=== PATIENT | male | born 1975 | race Caucasian/White ===

== ENCOUNTER 2018-08-17 21:51 | Inpatient (IN) | payer OTHER ==
--- NOTE | 2018-08-17 22:40 | ED ---
General Adult HPI - General Chief complaint: Recheck/Abnormal Lab/Rx Stated complaint: Hypertension Time Seen by Provider: 08/17/18 22:21 Source: patient, family Mode of arrival: ambulatory Limitations: no limitations - History of Present Illness Initial comments: This patient is a 43-year-old man who presents with a constellation of symptoms that came on this evening. The patient states that he was sitting tonight watching television and noted that he was having a little bit of headache. He describes it as being bifrontal, throbbing, mild to moderate intensity. He also was feeling a little dizzy or lightheaded. He states that he decided to check his blood pressure and found that it was above 180. He took an aspirin and he took some magnesium tablets and rested and then when the blood pressure was taken again it was higher so he presented to be evaluated. The patient states it subsequently he has started feeling better. He states in fact the symptoms have resolved and he is feeling pretty well right now. He denies having chest pain, dyspnea, diaphoresis, nausea or vomiting. -: hour(s) Location: head Radiation: non-radiation Quality: dull Consistency: now resolved Improves with: none Worsens with: none Associated Symptoms: fever/chills (Chill), headaches Treatments Prior to Arrival: Aspirin - Related Data Home Medications Medication Instructions Recorded Confirmed Magnesium 200 mg PO DAILY 08/17/18 08/17/18 Previous Rx's Medication Instructions Recorded Aspirin 81 mg PO DAILY chew 08/19/18 Lisinopril [Zestril] 5 mg PO DAILY #90 tab 08/19/18 Metoprolol Tartrate [Lopressor] 25 mg PO BID #180 tab 08/19/18 Simvastatin 80 mg PO DAILY #90 tablet 08/19/18 Allergies Allergy/AdvReac Type Severity Reaction Status Date / Time No Known Allergies Allergy Verified 08/17/18 22:41 Review of Systems ROS Statement: Those systems with pertinent positive or pertinent negative responses have been documented in the HPI. ROS Other: All systems not noted in ROS Statement are negative. Constitutional: Reports: chills. Denies: fever, weakness Eyes: Denies: eye pain, vision change ENT: Denies: ear pain Respiratory: Denies: cough, dyspnea Cardiovascular: Denies: chest pain, palpitations, orthopnea, syncope Gastrointestinal: Denies: abdominal pain, nausea, vomiting Musculoskeletal: Denies: back pain Neurological: Reports: headache. Denies: weakness, numbness, paresthesias, confusion Past Medical History Past Medical History: Hypertension History of Any Multi-Drug Resistant Organisms: None Reported Past Surgical History: Cholecystectomy Past Psychological History: No Psychological Hx Reported Smoking Status: Never smoker Past Alcohol Use History: None Reported Past Drug Use History: None Reported - Past Family History Father Family Medical History: CVA/TIA Additional Family Medical History / Comment(s): 2 brothers healthy one sister healthy 2 daughters healthy 2 sons healthy Mother Family Medical History: CVA/TIA General Exam Limitations: no limitations General appearance: alert, in no apparent distress Head exam: Present: atraumatic, normocephalic Eye exam: Present: normal appearance. Absent: scleral icterus, conjunctival injection ENT exam: Present: normal oropharynx Respiratory exam: Present: normal lung sounds bilaterally. Absent: respiratory distress, wheezes, rales, rhonchi, stridor Cardiovascular Exam: Present: regular rate, normal rhythm, normal heart sounds. Absent: systolic murmur, diastolic murmur, rubs, gallop GI/Abdominal exam: Present: soft. Absent: distended, tenderness, guarding, rebound Extremities exam: Present: normal inspection, normal capillary refill. Absent: pedal edema, calf tenderness Back exam: Present: normal inspection. Absent: CVA tenderness (R), CVA tenderness (L) Neurological exam: Present: alert, oriented X3, CN II-XII intact, normal gait. Absent: motor sensory deficit Skin exam: Present: warm, dry, intact, normal color. 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 ] Respiratory 20 15 18 Rate Blood Pressure 162/87 150/86 141/84 Blood Pressure [Right Arm Sitting] O2 Sat by Pulse 99 98 98 Oximetry 08/18/18 08/18/18 08/18/18 00:00 00:30 01:00 Temperature Pulse Rate 67 70 73 Pulse Rate [ Right Sitting Head Of [employer]ch[employer] Bu[employer] ] Respiratory 12 18 10 L Rate Blood Pressure 141/84 140/83 144/93 Blood Pressure [Right Arm Sitting] O2 Sat by Pulse 99 98 98 Oximetry 11/23/18 01:20 Temperature 98.3 F Pulse Rate Pulse Rate [ 64 Right Sitting Head Of Merchandise Buying ] Respiratory 16 Rate Blood Pressure Blood Pressure 144/85 [Right Arm Sitting] O2 Sat by Pulse 98 Oximetry EKG Findings - EKG Results: EKG: interpreted by MARIBEL SHERIDAN, sinus rhythm (Rate 69 bpm), normal axis (Normal) , normal QRS (Normal), normal ST/T (Normal), no acute changes - DE, Pacemaker, Normal: Normal tracing: normal tracing Medical Decision Making - Lab Data Result diagrams: 08/17/18 23:05 08/19/18 06:06 Lab Results 08/17/18 08/17/18 08/17/18 Range/Units 23:05 23:05 23:05 WBC 7.4 (3.8-10.6) k/uL RBC 5.46 (4.30-5.90) m/uL Hgb 16.4 (13.0-17.5) gm/dL Hct 49.8 (39.0-53.0) % MCV 91.1 (80.0-100.0) fL MCH 30.0 (25.0-35.0) pg MCHC 32.9 (31.0-37.0) g/dL RDW 13.7 (11.5-15.5) % Plt Count 227 (150-450) k/uL Neutrophils % 55 % Lymphocytes % 32 % Monocytes % 8 % Eosinophils % 1 % Basophils % 1 % Neutrophils # 4.0 (1.3-7.7) k/uL Lymphocytes # 2.3 (1.0-4.8) k/uL Monocytes # 0.6 (0-1.0) k/uL Eosinophils # 0.1 (0-0.7) k/uL Basophils # 0.0 (0-0.2) k/uL Sodium 139 (137-145) mmol/L Potassium 4.1 (3.5-5.1) mmol/L Chloride 105 (98-107) mmol/L Carbon Dioxide 25 (22-30) mmol/L Anion Gap 9 mmol/L BUN 14 (9-20) mg/dL Creatinine 1.19 (0.66-1.25) mg/dL Est GFR (CKD-EPI)AfAm 86 (>60 ml/min/1.73 sqM) Est GFR (CKD-EPI)NonAf 75 (>60 ml/min/1.73 sqM) Glucose 121 H (74-99) mg/dL Estimated Ave Glu mg/dL Hemoglobin A1c (4.0-6.0) % Calcium 9.6 (8.4-10.2) mg/dL Magnesium 1.9 (1.6-2.3) mg/dL Total Bilirubin 0.4 (0.2-1.3) mg/dL AST 30 (17-59) U/L ALT 43 (21-72) U/L Alkaline Phosphatase 40 (38-126) U/L Total Creatine Kinase (55-170) U/L CK-MB (CK-2) (0.0-2.4) ng/mL CK-MB (CK-2) Rel Index Troponin I 0.359 H* (0.000-0.034) ng/mL Total Protein 7.2 (6.3-8.2) g/dL Albumin 4.2 (3.5-5.0) g/dL 08/18/18 08/18/18 08/18/18 Range/Units 05:41 11:19 11:19 WBC (3.8-10.6) k/uL RBC (4.30-5.90) m/uL Hgb (13.0-17.5) gm/dL Hct (39.0-53.0) % MCV (80.0-100.0) fL MCH (25.0-35.0) pg MCHC (31.0-37.0) g/dL RDW (11.5-15.5) % Plt Count (150-450) k/uL Neutrophils % % Lymphocytes % % Monocytes % % Eosinophils % % Basophils % % Neutrophils # (1.3-7.7) k/uL Lymphocytes # (1.0-4.8) k/uL Monocytes # (0-1.0) k/uL Eosinophils # (0-0.7) k/uL Basophils # (0-0.2) k/uL Sodium (137-145) mmol/L Potassium (3.5-5.1) mmol/L Chloride (98-107) mmol/L Carbon Dioxide (22-30) mmol/L Anion Gap mmol/L BUN (9-20) mg/dL Creatinine (0.66-1.25) mg/dL Est GFR (CKD-EPI)AfAm (>60 ml/min/1.73 sqM) Est GFR (CKD-EPI)NonAf (>60 ml/min/1.73 sqM) Glucose (74-99) mg/dL Estimated Ave Glu mg/dL 108 Hemoglobin A1c 5.4 (4.0-6.0) % Calcium (8.4-10.2) mg/dL Magnesium (1.6-2.3) mg/dL Total Bilirubin (0.2-1.3) mg/dL AST (17-59) U/L ALT (21-72) U/L Alkaline Phosphatase (38-126) U/L Total Creatine Kinase 289 H 283 H (55-170) U/L CK-MB (CK-2) 1.2 1.2 (0.0-2.4) ng/mL CK-MB (CK-2) Rel Index 0.4 0.4 Troponin I 0.373 H* 0.358 H* (0.000-0.034) ng/mL Total Protein (6.3-8.2) g/dL Albumin (3.5-5.0) g/dL Disposition Clinical Impression: Hypertension, Elevated troponin I measurement Disposition: ADMITTED IP TO THIS HOSP Condition: Good Is patient prescribed a controlled substance at d/c from ED?: No
[2018-08-17 23:16] LABS: Basophils % (A) 1 %; Eosinophils # (A) 0.1 k/uL (0-0.7); Eosinophils % (A) 1 %; HCT 49.8 % (39.0-53.0); HGB 16.4 gm/dL (13.0-17.5); Lymphocytes # (A) 2.3 k/uL (1.0-4.8); Lymphocytes % (A) 32 %; MCHC 32.9 g/dL (31.0-37.0); MCV 91.1 fL (80.0-100.0); Mean Platelet Volume 6.8; Monocytes # (A) 0.6 k/uL (0-1.0); Monocytes % (A) 8 %; Neutrophils % (A) 55 %; Platelet Count 227 k/uL (150-450); RBC 5.46 m/uL (4.30-5.90); RDW 13.7 % (11.5-15.5); WBC 7.4 k/uL (3.8-10.6)
[2018-08-17 23:25] LABS: Albumin 4.2 g/dL (3.5-5.0); Calcium 9.6 mg/dL (8.4-10.2); Magnesium 1.9 mg/dL (1.6-2.3); Potassium 4.1 mmol/L (3.5-5.1); Total Bilirubin 0.4 mg/dL (0.2-1.3); Total Protein 7.2 g/dL (6.3-8.2)
--- NOTE | 2018-08-18 00:03 | XR ---
EXAMINATION TYPE: XR chest 1V portable DATE OF EXAM: 08/17/2018 COMPARISON: 09/02/2009 HISTORY: Hypertension TECHNIQUE: Single frontal view of the chest is obtained. FINDINGS: There is no heart failure nor confluent pneumonic infiltrate. Costophrenic angles are cesilia r. There are chest leads. IMPRESSION: No active cardiopulmonary disease. No change.
[2018-08-18] MEDS ORDERED: ASPIRIN 81 MG PO STA (00:23)
[2018-08-18] MEDS ORDERED: ENOXAPARIN 100 MG/ML SYRINGE SQ STA (00:24)
[2018-08-18] MEDS ORDERED: NITROGLYCERIN SL TABS 0.4 MG TAB SUBLINGUAL PRN ×2 (00:32→07:53)
[2018-08-18 06:33] LABS: Creatine Kinase MB 1.2 ng/mL (0.0-2.4)
[2018-08-18 06:37] LABS: Troponin I 0.373 ng/mL (0.000-0.034)
[2018-08-18] MEDS ORDERED: ASPIRIN 325 MG TAB PO STA (07:53)
[2018-08-18] MEDS ORDERED: SODIUM CHLORIDE 0.9% 1,000 ML in EMPTY BAG 1 BAG IV ONE (07:53)
[2018-08-18] MEDS ORDERED: ALPRAZolam 0.25 MG TAB PO PRN (07:53)
[2018-08-18] MEDS ORDERED: ALPRAZolam 0.5 MG TAB PO PRN (07:53)
[2018-08-18] MEDS ORDERED: ATORVASTATIN 80 MG TAB PO STA (07:53)
[2018-08-18] MEDS: METOPROLOL TARTRATE 25 MG TAB PO SCH ×2 (08:49→20:21)
[2018-08-18] MEDS ORDERED: IV FLUID CONTINUATION 850 ML IV ONE (09:45)
[2018-08-18] MEDS ORDERED: fentaNYL (PF) 50 MCG/ML 2 ML AMP ONE (09:56)
[2018-08-18] MEDS ORDERED: VERAPAMIL 2.5 MG/ML 2 ML AMP ONE (09:56)
[2018-08-18] MEDS ORDERED: HEPARIN SODIUM 1,000 UN/ML (10ML VL) ONE (09:56)
[2018-08-18] MEDS ORDERED: fentaNYL (PF) 50 MCG/ML 2 ML AMP IV ONE (10:30)
[2018-08-18] MEDS ORDERED: MIDAZOLAM 2 MG/2 ML VIAL ONE (10:31)
[2018-08-18] MEDS ORDERED: LIDOCAINE 2% SYG (PF) 100 MG/5 ML MISCELLANE ONE (10:32)
[2018-08-18] MEDS ORDERED: MIDAZOLAM 2 MG/2 ML VIAL IV ONE (10:35)
[2018-08-18] MEDS ORDERED: VERAPAMIL SYRINGE (5 MG/10 ML) INTRAARTER ONE (10:39)
[2018-08-18] MEDS ORDERED: HEPARIN SODIUM 1,000 UN/ML (10ML VL) IV ONE (10:48)
[2018-08-18] MEDS ORDERED: IOPAMIDOL-370 125ML BTL INJ ONE (10:52)
[2018-08-18] MEDS ORDERED: RX INFO: IV CONTRAST WAS GIVEN 1 EACH MISC MISCELLANE PRN (11:02)
[2018-08-18] MEDS: LISINOPRIL 5 MG TAB PO SCH (11:31)
[2018-08-18] MEDS ORDERED: ACETAMINOPHEN TAB 325 MG TAB PO PRN (12:47)
[2018-08-18 12:52] LABS: Creatine Kinase MB 1.2 ng/mL (0.0-2.4)
--- NOTE | 2018-08-18 13:04 | CONS ---
CONSULTATION Mr. Guardado is a 43-year-old male with no prior documented history of cardiac disease who for the last week has been complaining of headache. He checked his blood pressure and has noted it to be elevated. He has noted some discomfort in the chest that was very brief and not activity related. Recently he has been more active physically, has joined a gym and has been walking on the treadmill without any chest pain. He has no associated dyspnea, dizziness or palpitation. No syncope. No PND, orthopnea, or peripheral edema. He has no prior cardiac history or recent cardiac workup. His coronary risk factors are negative for diabetes or documented hyperlipidemia. There is no family history of premature coronary disease, his father had a history of stroke. He has stopped smoking many years ago. He had no prior documented history of hypertension or treated hypertension. MEDICATION: At the time of presentation were aspirin on a p.r.n. basis. REVIEW OF SYSTEMS: RESPIRATORY system: He has no recent history of documented asthma, emphysema or bronchitis. GI system: No recent GI bleed. No peptic ulcer disease. system: No dysuria or hematuria. Nervous system: No stroke or seizure. PHYSICAL EXAMINATION: He is a 43-year-old male, alert, oriented, in no apparent distress. Blood pressure on presentation was 162/80. There on is running in the 130s with a heart in the 60s. HEAD: Normocephalic. Eyes: Sclerae anicteric. Neck: Good carotid upstroke. No bruit. No jugular venous distention. LUNGS: Clear to auscultation. HEART: Regular rate and rhythm S1, S2. No S3. No S4. No murmur or rub. ABDOMEN: Soft, nontender. Positive bowel sounds. No megaly. EXTREMITIES: No edema. Intact distal pulses. LAB DATA: Lab data revealed troponin 0.359 and 0.373. His blood sugar is 121, BUN and creatinine 14 and 1.19, potassium 4.1, hemoglobin of 16.4. His EKG shows a sinus mechanism, normal axis and intervals with minor nonspecific ST-T wave changes. The chest x-ray shows no acute infiltrate. IMPRESSION: 1. Chest discomfort that has atypical features for ischemic heart disease with mild elevation of troponin of unclear etiology. The troponin elevation could be related to the elevated blood pressure, although the possibility of ischemic heart disease cannot be totally excluded. 2. Hypertension not documented in the past. RECOMMENDATIONS: I have recommend to obtain echocardiogram with Doppler. I will also recommend proceed with a coronary angiography to assess his status and guide his treatment. The rationale behind the procedure as well as risks and complications were discussed with the patient who is in full understanding and agreement. Depending on the results of testing, further recommendations will be made. Thank you for this consult. We will follow with you. ROSALEE / GRANTN: [id number] /
[2018-08-18 13:21] LABS: Troponin I 0.358 ng/mL (0.000-0.034)
--- NOTE | 2018-08-18 13:52 | CC ---
CARDIAC CATHETERIZATION REPORT Mr. Guardado is a 43-year-old male with no prior documented history of coronary artery disease who recently has been complaining of headache and was found to have his blood pressure is quite elevated. He has not followed his blood pressure prior to that and he was complaining of some episode of chest discomfort on and off, not exertion in pattern. Because of his symptoms, he was admitted and was found to have mild elevation of the troponin. In view of that, recommendation was made regarding cardiac catheterization. The procedure as well as the risks and the complications were discussed with the patient who is in full understanding and agreement. PROCEDURE: Patient was brought to the landscape laborer in a fasting semi-sedated state after receiving fentanyl and Benadryl and achieving moderate conscious sedated state. Using Xylocaine anesthesia in the Seldinger technique, a 6-Haitian sheath was introduced in the right radial artery. Selective right and left coronary angiography performed using 5-Haitian 3.5 bend right and left Merle catheter. Multiple views of the coronary artery including hemiaxial views were obtained. Following that 5-Haitian tight pigtail catheter was introduced in the left ventricle and a 30-degree JAMES view of the left ventricle was obtained. Following that, catheter and sheaths were removed. Hemostasis was obtained with deployment of a TR band. There was no immediate complication. Patient is returned to his room in stable condition. Of note, the patient received 5000 units of intravenous heparin as well as intraarterial verapamil. He had no chest discomfort or complication at the end procedure. FINDINGS: LEFT MAIN: This is a short size vessel bifurcating in the left circumflex and left anterior descending artery. Left main coronary artery has no evidence of high-grade stenosis. LEFT ANTERIOR DESCENDING ARTERY: This is a large-sized vessel reaching toward the apex, giving rise to a large proximal diagonal branch. The left anterior descending artery as well as branches have no evidence of obstructive coronary artery disease. LEFT CIRCUMFLEX: This is a large nondominant vessel giving rise to a large obtuse marginal branch that has no evidence of high-grade stenosis. RIGHT CORONARY ARTERY: This is a large dominant vessel bifurcating distally PDA and posterolateral segment and branches. The right coronary artery as well as branches have no evidence of obstructive coronary artery disease. LEFT VENTRICULOGRAM: Left ventriculogram is performed in 30-degree JAMES view and revealed mild global hypokinesis. The estimated ejection fraction 40% to 45%. There was no significant mitral regurgitation. HEMODYNAMICS: There was no gradient across the aortic valve. The left ventricular end- diastolic pressure was 12 mmHg. CONCLUSION: 1. Normal coronary arteries. 2. Moderately impaired left ventricular systolic function. RECOMMENDATION: At this time, I will maximize his medical therapy. Will obtain echocardiogram to further evaluate the left ventricular systolic function. Depending on that, further recommendation will be made. Those findings and recommendation were discussed with the patient and his family and they are in full understanding and agreement. Duration of procedure is 25 minutes. MMMACKENZIEL / IJN: [id number] /
[2018-08-18] MEDS ORDERED: HYDROcodone/APAP 5-325MG 1 EACH TAB PO STA (16:13)
--- NOTE | 2018-08-18 17:15 | ECHOF ---
Referral Reason:htn MEASUREMENTS -------- HEIGHT: 172.7 cm WEIGHT: 102.1 kg BP: 123/70 RVIDd: 2.8 cm (< 3.3) IVSd: 1.0 cm (0.6 - 1.1) LVIDd: 6.1 cm (3.9 - 5.3) LVPWd: 1.1 cm (0.6 - 1.1) IVSs: 1.6 cm LVIDs: 3.8 cm LVPWs: 1.3 cm LA Diam: 3.9 cm (2.7 - 3.8) LAESV Index (A-L): 24.14 ml/m Ao Diam: 3.2 cm (2.0 - 3.7) AV Cusp: 2.1 cm (1.5 - 2.6) MV EXCURSION: 13.189 mm (> 18.000) MV EF SLOPE: 99 mm/s (70 - 150) EPSS: 1.0 cm MV E Paul: 1.12 m/s MV DecT: 167 ms MV A Paul: 0.60 m/s MV E/A Ratio: 1.86 AV maxP.45 mmHg AV meanP.10 mmHg RAP: 5.00 mmHg RVSP: 20.86 mmHg FINDINGS -------- Sinus rhythm. This was a technically adequate study. The left ventricle is mildly dilated. There is borderline concentric left ventricular hypertrophy. There is moderate global hypokinesis of LV . Overall left ventricular systolic function is mild-m oderately impaired with, an EF between 40 - 45 %. The right ventricle is normal in size. Normal LA size by volume 22+/-6 ml/m2. The right atrium is normal in size. The aortic valve is trileaflet and appears structurally normal. Peak/mean gradient across the Aorti c Valve is 15.45mmHg / 8.10mmHg. Mild mitral regurgitation is present. Mild tricuspid regurgitation present. Right ventricular systolic pressure is normal at < 35 mmHg. There is no pulmonic regurgitation present. The aortic root size is normal. Normal inferior vena cava with normal inspiratory collapse consistent with estimated right atrial pre ssure of 5 mmHg. There is no pericardial effusion. CONCLUSIONS -------- 1. Sinus rhythm. 2. This was a technically adequate study. 3. The left ventricle is mildly dilated. 4. There is borderline concentric left ventricular hypertrophy. 5. There is moderate global hypokinesis of LV . 6. Overall left ventricular systolic function is mild-moderately impaired with, an EF between 40 - 45 %. 7. Normal LA size by volume 22+/-6 ml/m2. 8. The aortic valve is trileaflet and appears structurally normal. 9. Peak/mean gradient across the Aortic Valve is 15.45mmHg / 8.10mmHg. 10. Mild mitral regurgitation is present. 11. Mild tricuspid regurgitation present. 12. Right ventricular systolic pressure is normal at < 35 mmHg. 13. There is no pulmonic regurgitation present. 14. The aortic root size is normal. 15. Normal inferior vena cava with normal inspiratory collapse consistent with estimated right atrial pressure of 5 mmHg. 16. There is no pericardial effusion. EDGE DYER: Milka Villalobos RDCS
--- NOTE | 2018-08-18 19:30 | P.HPIM ---
History of Present Illness H&P Date: 08/18/18 Chief Complaint: Chest pain headache elevated blood pressure This is a 43-year-old gentleman patient of Dr. Frgaa. He has underlying history of hyperlipidemia, not on any statins at home, no known history of hypertension or CAD or diabetes mellitus in the past, comes into the emergency room secondary to headache.. Blood pressure at home was 195 systolic, also related to very mild chest pressure, no dyspnea on exertion prior to this admission, no history of diabetes mellitus or CVA in the past, no history of pulmonary emboli. Patient denies any nausea no vomiting, patient has headache located in the posterior neck, no vision changes except for blurred vision which is present in the past, nothing new, no diplopia, patient does not have any motor deficits in speech no motor deficits or sensory deficits to the deficits in the legs. Patient was subsequently seen in emergency room, noted to have an elevated troponin, EKG shows normal sinus rhythm with no ST-T wave changes, patient underwent an emergent cardiac catheterization secondary to elevated troponin and symptoms suggestive of hypertensive urgency and non-STEMI, patient was seen by myself after cardiac catheterization was performed. Review of Systems Constitutional: Reports as per HPI, Denies anorexia, Denies chills, Denies chronic headaches, Denies chronic pain, Denies daytime sleepiness, Denies fatigue, Denies fever, Denies lethargy, Denies malaise, Denies night sweats, Denies poor appetite, Denies sweats, Denies weakness, Denies weight gain, Denies weight loss Ears, nose, mouth and throat: Reports as per HPI, Denies ant. neck pain, Denies bleeding gums, Denies dental pain, Denies dysphagia, Denies epistaxis, Denies headache, Denies hoarseness, Denies mouth pain, Denies nasal congestion, Denies nasal discharge, Denies neck fullness/pressure, Denies neck lump, Denies nose pain, Denies odynophagia, Denies post-nasal drip, Denies sinus pain, Denies sinus pressure, Denies swelling in mouth, Denies swelling in throat, Denies sore throat, Denies vertigo, Denies voice changes Cardiovascular: Reports as per HPI, Reports chest pain, Denies claudication, Denies decreased exercise tolerance, Denies dyspnea on exertion, Denies edema, Denies high blood pressure, Denies irregular heart beat, Denies leg edema, Denies lightheadedness, Denies orthopnea, Denies palpitations, Denies paroxysmal nocturnal dyspnea, Denies phlebitis, Denies rapid heart beat, Denies shortness of breath, Denies syncope Respiratory: Reports as per HPI, Denies congestion, Denies cough, Denies cough with sputum, Denies dyspnea, Denies excessive sputum, Denies hemoptysis, Denies home oxygen, Denies pain, Denies pain on inspiration, Denies pleurisy, Denies respiratory infections, Denies sleep apnea, Denies snoring, Denies wheezing Gastrointestinal: Reports as per HPI, Denies abdominal pain, Denies belching, Denies bloating, Denies BRBPR, Denies change in bowel habits, Denies coffee ground emesis, Denies constipation, Denies diarrhea, Denies dyspepsia, Denies early satiety, Denies excessive gas, Denies heartburn, Denies hematemesis, Denies hematochezia, Denies indigestion, Denies jaundice, Denies lactose intolerance, Denies loss of appetite, Denies melena, Denies nausea, Denies vomiting Genitourinary: Reports as per HPI Musculoskeletal: Reports as per HPI, Reports neck pain, Denies arm numbness/ tingling, Denies atrophy, Denies fractures, Denies frequent falls, Denies gait dysfunction, Denies hot joints, Denies leg numbness/tingling, Denies limitation of motion, Denies loss of height, Denies low back pain, Denies morning stiffness , Denies muscle cramps, Denies muscle weakness, Denies myalgias, Denies neck stiffness, Denies prior amputations, Denies redness of joints, Denies shooting arm pain, Denies shooting leg pain Integumentary: Reports as per HPI Neurological: Reports as per HPI, Denies aphasia, Denies ataxia, Denies balance difficulties, Denies burning pain, Denies change in mentation, Denies change in smell/taste, Denies change in speech, Denies confusion, Denies convulsions, Denies double vision, Denies gait dysfunction, Denies head injury, Denies headaches, Denies hearing difficulties, Denies lack of coordination, Denies loss of vision, Denies memory loss, Denies migraines, Denies motor disturbance, Denies numbness, Denies paralysis, Denies paresthesias, Denies seizures, Denies sensory deficit, Denies spasticity, Denies syncope, Denies tic, Denies tingling , Denies transient paralysis, Denies tremors, Denies vertigo, Denies weakness, Denies visual changes Psychiatric: Reports as per HPI Endocrine: Reports as per HPI Hematologic/Lymphatic: Reports as per HPI Allergic/Immunologic: Reports as per HPI Past Medical History Past Medical History: Hypertension History of Any Multi-Drug Resistant Organisms: None Reported Past Surgical History: Cholecystectomy, Tonsillectomy Past Anesthesia/Blood Transfusion Reactions: No Reported Reaction Past Psychological History: No Psychological Hx Reported Smoking Status: Never smoker Past Alcohol Use History: None Reported Past Drug Use History: None Reported - Past Family History Father Family Medical History: CVA/TIA Additional Family Medical History / Comment(s): 2 brothers healthy one sister healthy 2 daughters healthy 2 sons healthy Mother Family Medical History: CVA/TIA Medications and Allergies Home Medications Medication Instructions Recorded Confirmed Type Aspirin EC [Ecotrin] 325 mg PO DAILY PRN 08/17/18 08/17/18 History Magnesium 200 mg PO DAILY 08/17/18 08/17/18 History Allergies Allergy/AdvReac Type Severity Reaction Status Date / Time No Known Allergies Allergy Verified 08/17/18 22:41 Physical Exam Vitals: Vital Signs Temp Pulse Pulse Pulse Resp BP BP 08/18/18 14:47 65 18 94/48 08/18/18 13:47 75 18 124/69 08/18/18 12:47 74 18 134/79 08/18/18 12:17 76 18 130/83 08/18/18 11:47 70 18 113/86 08/18/18 11:32 70 18 134/86 08/18/18 11:17 67 18 105/64 08/18/18 08:51 98 F 66 18 08/18/18 07:46 98 F 66 18 08/18/18 04:00 98.1 F 68 16 08/18/18 03:46 08/18/18 01:30 98.3 F 64 18 08/18/18 01:20 98.3 F 64 16 08/18/18 01:00 73 10 L 144/93 08/18/18 00:30 70 18 140/83 08/18/18 00:00 67 12 141/84 08/17/18 23:30 68 18 141/84 08/17/18 23:00 70 15 150/86 08/17/18 22:12 98.7 F 70 20 162/87 BP BP BP Pulse Ox 08/18/18 14:47 95 08/18/18 13:47 95 08/18/18 12:47 95 08/18/18 12:17 98 08/18/18 11:47 96 08/18/18 11:32 95 08/18/18 11:17 98 08/18/18 08:51 123/70 95 08/18/18 07:46 123/70 95 08/18/18 04:00 109/58 96 08/18/18 03:46 137/82 157/88 144/85 08/18/18 01:30 144/85 98 08/18/18 01:20 144/85 98 08/18/18 01:00 98 08/18/18 00:30 98 08/18/18 00:00 99 08/17/18 23:30 98 08/17/18 23:00 98 08/17/18 22:12 99 Intake and Output 08/18/18 08/18/18 08/18/18 06:59 14:59 22:59 Intake Total 270 240 Balance 270 240 Intake: IV 150 Oral 120 240 Other: Voiding Method Toilet # Voids 1 1 # Bowel Movements 1 - Constitutional General appearance: cooperative, no acute distress - EENT Eyes: anicteric sclerae, EOMI, PERRLA, dentition normal, normal appearance ENT: hard of hearing, NA/AT, normal oropharynx - Neck Neck: no lymphadenopathy, normal ROM, no other, no rigidity, no stridor, no thyromegaly - Respiratory Respiratory: bilateral: CTA, negative: diminished, dullness, rales, rhonchi - Cardiovascular Rhythm: regular Heart sounds: normal: S1, S2 Abnormal Heart Sounds: no systolic murmur, no diastolic murmur, no rub, no S3 Gallop, no S4 Gallop, no click, no other - Gastrointestinal General gastrointestinal: no absent bowel sounds, no decreased bowel sounds, no distended, no hepatomegaly, no hyperactive bowel sounds, normal bowel sounds, no organomegaly, no rigid, no scaphoid, soft, no splenomegaly, no tenderness, no umbilical hernia, no ventral hernia - Integumentary Integumentary: decreased turgor, normal - Neurologic Neurologic: CNII-XII intact - Musculoskeletal Musculoskeletal: gait normal, strength equal bilaterally - Psychiatric Psychiatric: A&O x's 3, appropriate affect, intact judgment & insight Results CBC & Chem 7: 08/17/18 23:05 08/17/18 23:05 Labs: Abnormal Lab Results - Last 24 Hours (Table) 08/17/18 08/17/18 08/18/18 Range/Units 23:05 23:05 05:41 Glucose 121 H (74-99) mg/dL Total Creatine Kinase 289 H (55-170) U/L Troponin I 0.359 H* 0.373 H* (0.000-0.034) ng/mL 08/18/18 Range/Units 11:19 Glucose (74-99) mg/dL Total Creatine Kinase 283 H (55-170) U/L Troponin I 0.358 H* (0.000-0.034) ng/mL Thrombosis Risk Factor Assmnt - DVT/VTE Prophylaxis DVT/VTE Prophylaxis: Low risk, early ambulation encouraged - Choose All That Apply Each Factor Represents 1 point: Age 41-60 years Thrombosis Risk Factor Assessment Total Risk Factor Score: 1 Thrombosis Risk Factor Assessment Level: Low Risk Assessment and Plan Plan: 1. Non-STEMI with elevated troponins ruled in [place], most likely secondary to plaque rupture, no occlusive coronary disease noted, patient underwent cardiac catheterization performed August 18, [address] Hendrickson, noted to have normal coronaries however it's moderately impaired left ventricle systolic pressure with EF of 30-40-45%, mild global hypokinesia echocardiogram to be done, patient was started on antihypertensive aspirin and beta chucho 25 mg metoprolol at twice a day. 2. Hypertensive emergency without known history of hypertension the past, continue to monitor blood pressures, patient might need to be investigated for pheochromocytoma, serum metanephrines will be ordered Fasting lipid panel to be done 3. BPH without lower tract symptomatology 4. BMI of 34, hemoglobin A1c to be obtained, 5. CK D stage II, to be avoided, continue IV fluids postcontrast studies from cardiac catheter 6. Headache possibly related to hypertensive emergency, however this needs to be investigated as an outpatient to rule out other neurologic abnormalities.
[2018-08-18 19:41] LABS: Hemoglobin A1C 5.4 % (4.0-6.0)
[2018-08-18 23:37] VITALS: TEMP 98.1
[2018-08-19 07:16] LABS: Anion Gap 6 mmol/L; Blood Urea Nitrogen 11 mg/dL (9-20); Calcium 9.2 mg/dL (8.4-10.2); Carbon Dioxide 26 mmol/L (22-30); Chloride 106 mmol/L (98-107); Cholesterol 239 mg/dL (<200); Glucose 98 mg/dL (74-99); Sodium 138 mmol/L (137-145); Triglycerides 122 mg/dL (<150)
[2018-08-19 07:17] LABS: HDL Cholesterol 41 mg/dL (40-60); LDL Cholesterol,Calculated 174 mg/dL (0-99)
[2018-08-19 08:27] LABS: Potassium 4.8 mmol/L (3.5-5.1)
[2018-08-19] MEDS: METOPROLOL TARTRATE 25 MG TAB PO SCH (08:49)
[2018-08-19 08:53] VITALS: BP 105/58; PULSE 60; RESP 18
[2018-08-19] MEDS ORDERED: ASPIRIN 325 MG TAB PO SCH (09:00)
[2018-08-19] MEDS ORDERED: ASPIRIN 81 MG PO SCH (09:00)
[2018-08-19] MEDS ORDERED: ATORVASTATIN 80 MG TAB PO SCH (09:45)
--- NOTE | 2018-08-19 09:59 | PN ---
PROGRESS NOTE Mr. Guardado is a 43 year-old male who presented with symptoms of chest discomfort as well as hypertension. He had mild elevation of troponin of unknown etiology, underwent cardiac catheterization, has no evidence of high-grade stenosis, but there was evidence of cardiomyopathy. He is doing well this morning, ambulating without difficulty. Denying any symptoms of chest pain. Denies any dizziness or palpitation. Denies any nausea. He continues to be on aspirin 81 mg daily, Zestril 5 mg daily, metoprolol 25 mg twice a day. PHYSICAL EXAMINATION: Blood pressure 105/58 with a heart rate in the 60s. LUNGS: Clear. HEART: Regular rate and rhythm S1, S2. No S3. No rub. ABDOMEN: Soft,nontender. EXTREMITIES: No edema. Right radial pulse is intact. LAB DATA: BUN and creatinine 11 and 0.99. Cholesterol 239, LDL of 174. IMPRESSION: 1. Nonischemic cardiomyopathy. 2. Hypertension under better control. 3. Hyperlipidemia. RECOMMENDATIONS: I will add to his regimen statin. Patient should be able to be discharged home today and followed as an outpatient. MMODL / IJN: [id number] /
[2018-08-19] MEDS: LISINOPRIL 5 MG TAB PO SCH (11:00)
--- NOTE | 2018-08-19 18:01 | P.DS ---
Providers Date of admission: 08/18/18 13:33 Attending physician: Britney Evans Consults: 08/18/18 00:32 Consult Physician Routine Consulting Provider: Rosita Hendrickson Consult Reason/Comments: chest pain Do you want consulting provider notified?: Yes Primary care physician: Emory Fraga [place] [facility] Course: This is a 43-year-old gentleman patient of Dr. Fraga. He has underlying history of hyperlipidemia, not on any statins at home, no known history of hypertension or CAD or diabetes mellitus in the past, comes into the emergency room secondary to headache.. Blood pressure at home was 195 systolic, also related to very mild chest pressure, no dyspnea on exertion prior to this admission, no history of diabetes mellitus or CVA in the past, no history of pulmonary emboli. Patient denies any nausea no vomiting, patient has headache located in the posterior neck, no vision changes except for blurred vision which is present in the past, nothing new, no diplopia, patient does not have any motor deficits in speech no motor deficits or sensory deficits to the deficits in the legs. Patient was subsequently seen in emergency room, noted to have an elevated troponin, EKG shows normal sinus rhythm with no ST-T wave changes, patient underwent an emergent cardiac catheterization secondary to elevated troponin and symptoms suggestive of hypertensive urgency and non-STEMI, patient was seen by myself after cardiac catheterization was performed. Patient had a cardiac catheterization with findings of normal coronary arteries and moderate impaired left ventricular systolic function. Patient is resting comfortably at this time without any complaints. Discharge Diagnosis: 1. Non-STEMI with elevated troponins ruled in [place], most likely secondary to plaque rupture, no occlusive coronary disease 2. Hypertensive emergency without known history of hypertension the past. 3. BPH without lower tract symptomatology 4. BMI of 34, , 5. CK D stage II, 6. Headache possibly related to hypertensive emergency, Disposition: Home with self care CC; Dr. Fraga Impression and plan of care have been directed as dictated by the signing physician. Ailyn Moore nurse practitioner acting as scribe for signing physician. Patient Condition at Discharge: Good Plan - Discharge Summary Discharge Rx Participant: No New Discharge Prescriptions: New Aspirin 81 mg PO DAILY chew Lisinopril [Zestril] 5 mg PO DAILY #90 tab Metoprolol Tartrate [Lopressor] 25 mg PO BID #180 tab Simvastatin 80 mg PO DAILY #90 tablet Continue Magnesium 200 mg PO DAILY Discontinued Aspirin EC [Ecotrin] 325 mg PO DAILY PRN PRN Reason: HIGH BLOOD PRESSURE Discharge Medication List Magnesium 200 mg PO DAILY 08/17/18 [History] Aspirin 81 mg PO DAILY chew 08/19/18 [Rx] Lisinopril [Zestril] 5 mg PO DAILY #90 tab 08/19/18 [Rx] Metoprolol Tartrate [Lopressor] 25 mg PO BID #180 tab 08/19/18 [Rx] Simvastatin 80 mg PO DAILY #90 tablet 08/19/18 [Rx] Follow up Appointment(s)/Referral(s): Rosita Hendrickson MD [STAFF PHYSICIAN] - 1 Week (office is closed for the , please call tuesday to schedule appointment) Emory Fraga DO [Primary Care Provider] - 1-2 days (Office is closed. Please call to schedule follow up appointment) Patient Instructions/Handouts: Metoprolol (By mouth), Lisinopril (By mouth), Simvastatin (By mouth), Mediterranean Diet (DC) Discharge Disposition: HOME SELF-CARE
== END 2018-08-19 12:18 | disposition home or self-care (01) | DRG 281 ==
LOC: EC 21:51 → 3SCARD 08-18 00:32 → OBSVTOIN 08-18 13:33
PROVIDERS: ADMIT Family Medicine; ATTEND Family Medicine
PROC: B2111ZZ Fluoroscopy of Multiple Coronary Arteries using Low Osmolar Contrast (ICD-10-PCS; 2018-08-18)
PROC: B2151ZZ Fluoroscopy of Left Heart using Low Osmolar Contrast (ICD-10-PCS; 2018-08-18)
PROC: 4A023N7 Measurement of Cardiac Sampling and Pressure, Left Heart, Percutaneous Approach (ICD-10-PCS; principal; 2018-08-18 09:45)
DX: I21.4 Non-ST elevation (NSTEMI) myocardial infarction (principal); I16.1 Hypertensive emergency; I42.9 Cardiomyopathy, unspecified; E78.5 Hyperlipidemia, unspecified; I25.9 Chronic ischemic heart disease, unspecified; N40.0 Benign prostatic hyperplasia without lower urinary tract symptoms; Z68.34 Body mass index [BMI] 34.0-34.9, adult; Z79.82 Long term (current) use of aspirin; Z79.899 Other long term (current) drug therapy; Z87.891 Personal history of nicotine dependence; I12.9 Hypertensive chronic kidney disease with stage 1 through stage 4 chronic kidney disease, or unspecified chronic kidney disease; N18.2 Chronic kidney disease, stage 2 (mild); Z82.3 Family history of stroke
CPT/HCPCS: 36415; 71045; 80048; 80053; 80061; 82550; 82553; 83036; 83735; 83835; 84484; 85025; 85347; 93005; 93306; 93458; 96372; 99285

== ENCOUNTER 2019-07-05 11:46 | Emergency (ER) | payer OTHER ==
[2019-07-05 11:59] VITALS: BP 156/72; PULSE 73; RESP 22; TEMP 97.9
[2019-07-05] MEDS ORDERED: SODIUM CHLORIDE 0.9% 1,000 ML IV STA (12:16)
[2019-07-05] MEDS ORDERED: ONDANSETRON 4 MG/2 ML VIAL IVP STA (12:16)
[2019-07-05] MEDS ORDERED: MORPHINE SULFATE 4 MG/ML SYRINGE IV STA (12:16)
[2019-07-05] MEDS ORDERED: KETOROLAC 30 MG/ML 1 ML VIAL IVP STA (12:39)
[2019-07-05 12:40] LABS: Basophils % (A) 0 %; Eosinophils # (A) 0.1 k/uL (0-0.7); Eosinophils % (A) 1 %; HCT 46.1 % (39.0-53.0); HGB 16.1 gm/dL (13.0-17.5); Lymphocytes # (A) 2.4 k/uL (1.0-4.8); Lymphocytes % (A) 39 %; MCH 31.1 pg (25.0-35.0); MCHC 34.9 g/dL (31.0-37.0); MCV 89.2 fL (80.0-100.0); Mean Platelet Volume 6.4; Monocytes # (A) 0.3 k/uL (0-1.0); Monocytes % (A) 5 %; Neutrophils % (A) 50 %; Platelet Count 240 k/uL (150-450); RBC 5.16 m/uL (4.30-5.90); RDW 12.9 % (11.5-15.5); WBC 6.1 k/uL (3.8-10.6)
[2019-07-05 12:52] LABS: ALT 50 U/L (21-72); AST 35 U/L (17-59); African American GFR (CKD) >90 (>60 ml/min/1.73 sqM); Albumin 4.7 g/dL (3.5-5.0); Alkaline Phosphatase 55 U/L (38-126); Amylase 46 U/L (30-110); Anion Gap 13 mmol/L; Blood Urea Nitrogen 13 mg/dL (9-20); Calcium 9.7 mg/dL (8.4-10.2); Carbon Dioxide 24 mmol/L (22-30); Chloride 103 mmol/L (98-107); Glucose 107 mg/dL (74-99); Sodium 140 mmol/L (137-145); Total Bilirubin 0.5 mg/dL (0.2-1.3); Total Protein 7.7 g/dL (6.3-8.2)
[2019-07-05] MEDS ORDERED: HYDROmorphone 0.5 MG/0.5 ML SYRINGE IVP STA (13:05)
[2019-07-05 13:06] LABS: Appearance,Urine Clear (Clear); Bilirubin,Urine Negative (Negative); Blood,Urine Small (Negative); Color,Urine Yellow; Glucose,Urine (UA) Negative (Negative); Ketones,Urine Negative (Negative); Leukocyte Esterase,Urine Trace (Negative); Mucus,Urine Rare /hpf; Nitrite,Urine Negative (Negative); PH, Urine 7.5 (5.0-8.0); Protein,Urine 1+ (Negative); RBC,Urine 55 /hpf (0-5); Specific Gravity,Urine 1.024 (1.001-1.035); Urobilinogen,Urine <2.0 mg/dL (<2.0); WBC,Urine 2 /hpf (0-5)
--- NOTE | 2019-07-05 13:18 | CT ---
EXAMINATION TYPE: CT abdomen pelvis wo con DATE OF EXAM: 07/05/2019 COMPARISON: HISTORY: Left sided pain CT DLP: 919.2 mGycm Automated exposure control for dose reduction was used. TECHNIQUE: Helical acquisition of images was performed from the lung bases through the pelvis. FINDINGS: LUNG BASES: No significant abnormality is appreciated. LIVER/GB: Postcholecystectomy changes noted. PANCREAS: No significant abnormality is seen. SPLEEN: No significant abnormality is seen. Accessory spleen noted. ADRENALS: No significant abnormality is seen. KIDNEYS: There is a hypodense lesion within the lateral margin of the right kidney which is indetermi beatriz. There are 3 calcifications in the right kidney the largest measuring 3 mm. There is mild to moderate left hydronephrosis. Approximately 2-3 punctate calcifications within the l eft kidney. Within the mid to upper ureter on the left there is a 3 mm calcification resulting in lef t-sided hydronephrosis. This appears to be at the L4 level. Bladder is homogeneous. ADENOPATHY: None visualized. OSSEOUS STRUCTURES: No significant abnormality is seen. BOWEL: No significant abnormality is seen. OTHER: Aorta of normal caliber. No free fluid or free air. IMPRESSION: 1. Bilateral nephrolithiasis with mild to moderate left hydronephrosis secondary to a mid left ureter al calculus measuring 3 mm at the L4 level. 2. There is a indeterminate right renal lesion which could be correlated with ultrasound
[2019-07-05] MEDS ORDERED: TAMSULOSIN 0.4 MG CAP.ER.24H PO STA (14:01)
--- NOTE | 2019-07-05 14:10 | ED ---
Abdominal Pain HPI - General Chief Complaint: Abdominal Pain Stated Complaint: Kidney stone Time Seen by Provider: 07/05/19 12:09 Source: patient Mode of arrival: ambulatory Limitations: no limitations - History of Present Illness Initial Comments: Patient is a 44-year-old male with history of kidney stones presenting to emergency Department with chief complaint of left flank pain. Patient reports it was a sudden onset of left flank and left lower quadrant pain that started a few hours prior to ED arrival. Patient reports the pain is initially in the left flank region and is now again to radiate into left lower quadrant. Patient reports the pain comes and goes But It is sharp in nature. Patient reports the pain is not related to oral intake. Patient does report nausea but no vomiting. Patient denies any urinary symptoms hematuria, hematochezia or melena. Patient reports taking [id number] analgesics minimal improvement. - Related Data Home Medications Medication Instructions Recorded Confirmed Magnesium 200 mg PO DAILY 08/17/18 08/17/18 Previous Rx's Medication Instructions Recorded Aspirin 81 mg PO DAILY chew 08/19/18 Lisinopril [Zestril] 5 mg PO DAILY #90 tab 08/19/18 Metoprolol Tartrate [Lopressor] 25 mg PO BID #180 tab 08/19/18 Simvastatin 80 mg PO DAILY #90 tablet 08/19/18 HYDROcodone/APAP 10-325MG [[place] 1 tab PO Q6HR PRN 3 Days #12 tab 07/05/19 10-325] Tamsulosin [Flomax] 0.4 mg PO DAILY #7 cap 07/05/19 Allergies Allergy/AdvReac Type Severity Reaction Status Date / Time No Known Allergies Allergy Verified 07/05/19 11:59 Review of Systems ROS Statement: Those systems with pertinent positive or pertinent negative responses have been documented in the HPI. ROS Other: All systems not noted in ROS Statement are negative. Past Medical History Past Medical History: Hypertension History of Any Multi-Drug Resistant Organisms: None Reported Past Surgical History: Cholecystectomy, Tonsillectomy Past Anesthesia/Blood Transfusion Reactions: No Reported Reaction Past Psychological History: No Psychological Hx Reported Smoking Status: Never smoker Past Alcohol Use History: None Reported Past Drug Use History: None Reported - Past Family History Father Family Medical History: CVA/TIA Additional Family Medical History / Comment(s): 2 brothers healthy one sister healthy 2 daughters healthy 2 sons healthy Mother Family Medical History: CVA/TIA General Exam Limitations: no limitations General appearance: alert, in no apparent distress, in distress Head exam: Present: atraumatic, normocephalic, normal inspection Eye exam: Present: normal appearance Pupils: Present: normal accommodation ENT exam: Present: normal exam, mucous membranes moist, normal external ear exam Neck exam: Present: normal inspection, full ROM Respiratory exam: Present: normal lung sounds bilaterally Cardiovascular Exam: Present: regular rate, normal rhythm, normal heart sounds GI/Abdominal exam: Present: soft, tenderness (Left lower quadrant), normal bowel sounds. Absent: distended, guarding, rebound, rigid, mass Extremities exam: Present: normal inspection, full ROM Back exam: Present: normal inspection, full ROM, CVA tenderness (L) Neurological exam: Present: alert, oriented X3 Psychiatric exam: Present: normal affect, normal mood Skin exam: Present: warm, intact, normal color Course Vital Signs 07/05/19 11:57 Temperature 97.9 F Pulse Rate 73 Respiratory 22 Rate Blood Pressure 156/72 O2 Sat by Pulse 98 Oximetry Medical Decision Making - Medical Decision Making Patient is a 44-year-old male with history of kidney stones is presenting to the emergency department with a chief complaint of left flank and left lower quadrant pain. Patient reports the pain starts in the left flank region and is not radiating. Patient has had the pain for the last few hours prior to the arrival and it was a sudden onset of pain. Patient does have nausea but no vomiting. Pain is not related to oral intake. Patient is eating and drinking, urinating without any issues. Physical examination patient does have left lower quadrant tenderness with no suprapubic tenderness. Patient does have left CVA tenderness. CBC, CMP are unremarkable. UA is indicative of microscopic hematuria but no infection. CT of abdomen and pelvis without contrast is indicative of bilateral nephrolithiasis with mild to moderate left-sided hydronephrosis due to a 3 mm calculus in the left ureter. Patient given algesia, fluids, antiemetics and Flomax. Patient will be discharged with Zofran, Flomax and analgesia. Patient advised to follow-up with urology. Patient advised to alternate between Tylenol and ibuprofen for pain control. Patient advised to drink liquids. Should return parameters were thoroughly discussed with patient was understanding and agreeable. Case discussed with physician. - Lab Data Result diagrams: 07/05/19 12:15 07/05/19 12:15 Lab Results 07/05/19 07/05/19 07/05/19 Range/Units 12:05 12:15 12:15 WBC 6.1 (3.8-10.6) k/uL RBC 5.16 (4.30-5.90) m/uL Hgb 16.1 (13.0-17.5) gm/dL Hct 46.1 (39.0-53.0) % MCV 89.2 (80.0-100.0) fL MCH 31.1 (25.0-35.0) pg MCHC 34.9 (31.0-37.0) g/dL RDW 12.9 (11.5-15.5) % Plt Count 240 (150-450) k/uL Neutrophils % 50 % Lymphocytes % 39 % Monocytes % 5 % Eosinophils % 1 % Basophils % 0 % Neutrophils # 3.0 (1.3-7.7) k/uL Lymphocytes # 2.4 (1.0-4.8) k/uL Monocytes # 0.3 (0-1.0) k/uL Eosinophils # 0.1 (0-0.7) k/uL Basophils # 0.0 (0-0.2) k/uL Sodium 140 (137-145) mmol/L Potassium 4.0 (3.5-5.1) mmol/L Chloride 103 (98-107) mmol/L Carbon Dioxide 24 (22-30) mmol/L Anion Gap 13 mmol/L BUN 13 (9-20) mg/dL Creatinine 1.07 (0.66-1.25) mg/dL Est GFR (CKD-EPI)AfAm >90 (>60 ml/min/1.73 sqM) Est GFR (CKD-EPI)NonAf 85 (>60 ml/min/1.73 sqM) Glucose 107 H (74-99) mg/dL Calcium 9.7 (8.4-10.2) mg/dL Total Bilirubin 0.5 (0.2-1.3) mg/dL AST 35 (17-59) U/L ALT 50 (21-72) U/L Alkaline Phosphatase 55 (38-126) U/L Total Protein 7.7 (6.3-8.2) g/dL Albumin 4.7 (3.5-5.0) g/dL Amylase 46 (30-110) U/L Lipase 97 (23-300) U/L Urine Color Yellow Urine Appearance Clear (Clear) Urine pH 7.5 (5.0-8.0) Ur Specific [place] 1.024 (1.001-1.035) Urine Protein 1+ H (Negative) Urine Glucose (UA) Negative (Negative) Urine Ketones Negative (Negative) Urine Blood Small H (Negative) Urine Nitrite Negative (Negative) Urine Bilirubin Negative (Negative) Urine Urobilinogen <2.0 (<2.0) mg/dL Ur Leukocyte Esterase Trace H (Negative) Urine RBC 55 H (0-5) /hpf Urine WBC 2 (0-5) /hpf Urine Mucus Rare H (None) /hpf Disposition Clinical Impression: Kidney stones, Left flank pain Disposition: HOME SELF-CARE Condition: Stable Instructions (If sedation given, give patient instructions): Kidney Stones (ED) Additional Instructions: Please take prescribed medication as directed. Please follow-up with urology. Alternate between Tylenol and ibuprofen for pain control. Drink lot of fluids. Please return to emergency department if symptoms worsen. Prescriptions: Tamsulosin [Flomax] 0.4 mg PO DAILY #7 cap HYDROcodone/APAP 10-325MG [[place] 10-325] 1 tab PO Q6HR PRN 3 Days #12 tab PRN Reason: Pain Is patient prescribed a controlled substance at d/c from ED?: No If prescribed controlled substance>3 days was MAPS reviewed?: Prescribed <3 Days Referrals: Emory Fraga DO [Primary Care Provider] - 1-2 days Cesar Weinberg MD [STAFF PHYSICIAN] - 1-2 days Time of Disposition: 14:10
== END 2019-07-05 14:35 | disposition home or self-care (01) ==
LOC: EC 11:46
DX: N13.2 Hydronephrosis with renal and ureteral calculous obstruction (principal); Z90.49 Acquired absence of other specified parts of digestive tract
CPT/HCPCS: 36415; 80053; 82150; 83690; 85025; 81001; 74176; 99284; 96374; 96375 ×3; 96361; J2270; J2405; J1885; J1170

== ENCOUNTER 2020-11-17 18:59 | Emergency (ER) | payer OTHER ==
[2020-11-17] MEDS ORDERED: ACETAMINOPHEN TAB 500 MG TAB PO STA (19:30)
[2020-11-17] MEDS: SODIUM CHLORIDE 0.9% 500 ML 500 ML IV SCH ×3 (20:03→21:37)
[2020-11-17 20:06] LABS: Basophils # (A) 0.1 k/uL (0-0.2); Basophils % (A) 2 %; Eosinophils % (A) 1 %; HCT 46.9 % (39.0-53.0); HGB 16.6 gm/dL (13.0-17.5); Lymphocytes # (A) 0.9 k/uL (1.0-4.8); Lymphocytes % (A) 22 %; MCH 31.4 pg (25.0-35.0); MCHC 35.3 g/dL (31.0-37.0); MCV 89.1 fL (80.0-100.0); Mean Platelet Volume 7.6; Monocytes # (A) 0.3 k/uL (0-1.0); Monocytes % (A) 7 %; Neutrophils # (A) 2.5 k/uL (1.3-7.7); Neutrophils % (A) 66 %; Platelet Count 143 k/uL (150-450); RBC 5.27 m/uL (4.30-5.90); RDW 12.6 % (11.5-15.5); WBC 3.8 k/uL (3.8-10.6)
[2020-11-17 20:17] LABS: ALT 39 U/L (4-49); AST 33 U/L (17-59); African American GFR (CKD) >90 (>60 ml/min/1.73 sqM); Albumin 4.9 g/dL (3.5-5.0); Alkaline Phosphatase 60 U/L (38-126); Anion Gap 10 mmol/L; Blood Urea Nitrogen 10 mg/dL (9-20); Calcium 9.5 mg/dL (8.4-10.2); Carbon Dioxide 27 mmol/L (22-30); Chloride 97 mmol/L (98-107); Glucose 99 mg/dL (74-99); Non-African American GFR(CKD) 79 (>60 ml/min/1.73 sqM); Potassium 4.1 mmol/L (3.5-5.1); Sodium 134 mmol/L (137-145); Total Bilirubin 0.6 mg/dL (0.2-1.3)
[2020-11-17 20:28] LABS: INR 0.9 (<1.2); Partial Thromboplastin Time 25.6 sec (22.0-30.0); Prothrombin Time 10.1 sec (9.0-12.0)
--- NOTE | 2020-11-17 20:31 | XR ---
EXAMINATION TYPE: XR chest 1V portable DATE OF EXAM: 11/17/2020 COMPARISON: 08/17/2018. HISTORY: Left rib and back pain. Fever TECHNIQUE: Single frontal view of the chest is obtained. FINDINGS: There is no focal air space opacity, pleural effusion, or pneumothorax seen. The cardiac silhouette size is within normal limits. The osseous structures are intact. IMPRESSION: No acute process.
--- NOTE | 2020-11-17 21:20 | ED ---
General Adult HPI - General Chief complaint: Abdominal Pain Stated complaint: ABD pain,Fever Time Seen by Provider: 11/17/20 19:15 Source: patient Mode of arrival: ambulatory Limitations: no limitations - History of Present Illness Initial comments: 45-year-old male patient presents to the emergency department today for evaluation of left lower rib and abdominal pain radiating through to his back. States the pain is present for the last 3-4 days. States he has been having high fevers over 102F for the last 6 days. States the pain worsens when he takes a deep breath. He denies any cough or congestion. Denies hemoptysis. He denies any constipation or diarrhea. Denies urinary symptoms. Denies history of abdominal surgery. Denies any sore throat or nasal congestion. Denies ear pain. States that he feels generally weak, achy all over, and unwell. Patient denies any recent rash, chest pain, back pain, numbness, tingling, dizziness, weakness, hematuria, dysuria, urinary urgency, urinary frequency, headache, visual changes, or any other complaints. - Related Data Home Medications Medication Instructions Recorded Confirmed Magnesium 200 mg PO DAILY 08/17/18 08/17/18 Previous Rx's Medication Instructions Recorded Aspirin 81 mg PO DAILY chew 08/19/18 Metoprolol Tartrate [Lopressor] 25 mg PO BID #180 tab 08/19/18 Simvastatin 80 mg PO DAILY #90 tablet 08/19/18 lisinopriL [Zestril] 5 mg PO DAILY #90 tab 08/19/18 HYDROcodone/APAP 10-325MG [[place] 1 tab PO Q6HR PRN 3 Days #12 tab 07/05/19 10-325] Tamsulosin [Flomax] 0.4 mg PO DAILY #7 cap 07/05/19 Allergies Allergy/AdvReac Type Severity Reaction Status Date / Time No Known Allergies Allergy Verified 07/05/19 11:59 Review of Systems ROS Statement: Those systems with pertinent positive or pertinent negative responses have been documented in the HPI. ROS Other: All systems not noted in ROS Statement are negative. Past Medical History Past Medical History: Hypertension History of Any Multi-Drug Resistant Organisms: None Reported Past Surgical History: Cholecystectomy, Tonsillectomy Past Anesthesia/Blood Transfusion Reactions: No Reported Reaction Past Psychological History: No Psychological Hx Reported Smoking Status: Never smoker Past Alcohol Use History: None Reported Past Drug Use History: None Reported - Past Family History Father Family Medical History: CVA/TIA Additional Family Medical History / Comment(s): 2 brothers healthy one sister healthy 2 daughters healthy 2 sons healthy Mother Family Medical History: CVA/TIA General Exam Limitations: no limitations General appearance: alert, in no apparent distress, other (Physical well- developed, well-nourished adult male patient in no acute distress. Vital signs upon presentation are temperature 102.0F, pulse 91, respirations 20, blood pressure 127/70, pulse ox 95% on room air.) Neck exam: Present: normal inspection. Absent: tenderness, meningismus, lymphadenopathy Respiratory exam: Present: normal lung sounds bilaterally. Absent: respiratory distress, wheezes, rales, rhonchi, stridor Cardiovascular Exam: Present: regular rate, normal rhythm, normal heart sounds. Absent: systolic murmur, diastolic murmur, rubs, gallop, clicks GI/Abdominal exam: Present: soft, normal bowel sounds. Absent: distended, tenderness, guarding, rebound, rigid Neurological exam: Present: alert, oriented X3, CN II-XII intact Psychiatric exam: Present: normal affect, normal mood Skin exam: Present: warm, dry, intact, normal color. Absent: rash Course Vital Signs 11/17/20 11/17/20 11/17/20 19:10 20:53 21:39 Temperature 102.0 F H 101 F H 98.8 F Pulse Rate 91 82 81 Respiratory 20 16 18 Rate Blood Pressure 127/70 126/66 108/58 O2 Sat by Pulse 95 96 96 Oximetry EKG Findings - EKG Comments: EKG Findings:: EKG obtained in 1940 shows normal sinus rhythm ventricular rate 89, P return of a 116, QRS duration 100, QT 356, QTc 433. No evidence of ST elevation or depression. Medical Decision Making - Medical Decision Making 45-year-old male patient presented to the emergency department today for evaluation of left lateral rib pain. Pain does increase somewhat with deep toni athing. He did have fever 102F on arrival. Denies significant cough states he does feel somewhat short of breath. Labs reviewed and are relatively unremarkable. He did test positive for COVID-19. Chest xray was negative. Also tested negative for influenza and mono. I did discuss findings and results with him. He will be discharged without this primary care physician for recheck in 1-2 days. He is instructed to alternate Tylenol Motrin for fever control. Increase fluids. Rest. We did discuss need for quarantine due to his diagnosis. Return parameters were discussed in detail. He verbalizes understanding and agrees with this plan. Case discussed with my attending Dr. Villegas. - Lab Data Result diagrams: 11/17/20 19:53 11/17/20 19:53 Lab Results 11/17/20 11/17/20 11/17/20 Range/Units 19:53 19:53 19:53 WBC 3.8 (3.8-10.6) k/uL RBC 5.27 (4.30-5.90) m/uL Hgb 16.6 (13.0-17.5) gm/dL Hct 46.9 (39.0-53.0) % MCV 89.1 (80.0-100.0) fL MCH 31.4 (25.0-35.0) pg MCHC 35.3 (31.0-37.0) g/dL RDW 12.6 (11.5-15.5) % Plt Count 143 L (150-450) k/uL MPV 7.6 Neutrophils % 66 % Lymphocytes % 22 % Monocytes % 7 % Eosinophils % 1 % Basophils % 2 % Neutrophils # 2.5 (1.3-7.7) k/uL Lymphocytes # 0.9 L (1.0-4.8) k/uL Monocytes # 0.3 (0-1.0) k/uL Eosinophils # 0.0 (0-0.7) k/uL Basophils # 0.1 (0-0.2) k/uL PT 10.1 (9.0-12.0) sec INR 0.9 (<1.2) APTT 25.6 (22.0-30.0) sec Sodium 134 L (137-145) mmol/L Potassium 4.1 (3.5-5.1) mmol/L Chloride 97 L (98-107) mmol/L Carbon Dioxide 27 (22-30) mmol/L Anion Gap 10 mmol/L BUN 10 (9-20) mg/dL Creatinine 1.12 (0.66-1.25) mg/dL Est GFR (CKD-EPI)AfAm >90 (>60 ml/min/1.73 sqM) Est GFR (CKD-EPI)NonAf 79 (>60 ml/min/1.73 sqM) Glucose 99 (74-99) mg/dL Plasma Lactic Acid Tamir (0.7-2.0) mmol/L Calcium 9.5 (8.4-10.2) mg/dL Total Bilirubin 0.6 (0.2-1.3) mg/dL AST 33 (17-59) U/L ALT 39 (4-49) U/L Alkaline Phosphatase 60 (38-126) U/L Troponin I (0.000-0.034) ng/mL Total Protein 8.0 (6.3-8.2) g/dL Albumin 4.9 (3.5-5.0) g/dL Heterophile Antibody (Negative) Influenza Type A (PCR) (Not Detectd) Influenza Type B (PCR) (Not Detectd) RSV (PCR) (Not Detectd) SARS-CoV-2 (PCR) (Not Detectd) 11/17/20 11/17/20 11/17/20 Range/Units 19:53 19:53 19:53 WBC (3.8-10.6) k/uL RBC (4.30-5.90) m/uL Hgb (13.0-17.5) gm/dL Hct (39.0-53.0) % MCV (80.0-100.0) fL MCH (25.0-35.0) pg MCHC (31.0-37.0) g/dL RDW (11.5-15.5) % Plt Count (150-450) k/uL MPV Neutrophils % % Lymphocytes % % Monocytes % % Eosinophils % % Basophils % % Neutrophils # (1.3-7.7) k/uL Lymphocytes # (1.0-4.8) k/uL Monocytes # (0-1.0) k/uL Eosinophils # (0-0.7) k/uL Basophils # (0-0.2) k/uL PT (9.0-12.0) sec INR (<1.2) APTT (22.0-30.0) sec Sodium (137-145) mmol/L Potassium (3.5-5.1) mmol/L Chloride (98-107) mmol/L Carbon Dioxide (22-30) mmol/L Anion Gap mmol/L BUN (9-20) mg/dL Creatinine (0.66-1.25) mg/dL Est GFR (CKD-EPI)AfAm (>60 ml/min/1.73 sqM) Est GFR (CKD-EPI)NonAf (>60 ml/min/1.73 sqM) Glucose (74-99) mg/dL Plasma Lactic Acid Tamir 1.1 (0.7-2.0) mmol/L Calcium (8.4-10.2) mg/dL Total Bilirubin (0.2-1.3) mg/dL AST (17-59) U/L ALT (4-49) U/L Alkaline Phosphatase (38-126) U/L Troponin I 0.017 (0.000-0.034) ng/mL Total Protein (6.3-8.2) g/dL Albumin (3.5-5.0) g/dL Heterophile Antibody Negative (Negative) Influenza Type A (PCR) (Not Detectd) Influenza Type B (PCR) (Not Detectd) RSV (PCR) (Not Detectd) SARS-CoV-2 (PCR) (Not Detectd) 11/17/20 Range/Units 19:53 WBC (3.8-10.6) k/uL RBC (4.30-5.90) m/uL Hgb (13.0-17.5) gm/dL Hct (39.0-53.0) % MCV (80.0-100.0) fL MCH (25.0-35.0) pg MCHC (31.0-37.0) g/dL RDW (11.5-15.5) % Plt Count (150-450) k/uL MPV Neutrophils % % Lymphocytes % % Monocytes % % Eosinophils % % Basophils % % Neutrophils # (1.3-7.7) k/uL Lymphocytes # (1.0-4.8) k/uL Monocytes # (0-1.0) k/uL Eosinophils # (0-0.7) k/uL Basophils # (0-0.2) k/uL PT (9.0-12.0) sec INR (<1.2) APTT (22.0-30.0) sec Sodium (137-145) mmol/L Potassium (3.5-5.1) mmol/L Chloride (98-107) mmol/L Carbon Dioxide (22-30) mmol/L Anion Gap mmol/L BUN (9-20) mg/dL Creatinine (0.66-1.25) mg/dL Est GFR (CKD-EPI)AfAm (>60 ml/min/1.73 sqM) Est GFR (CKD-EPI)NonAf (>60 ml/min/1.73 sqM) Glucose (74-99) mg/dL Plasma Lactic Acid Tamir (0.7-2.0) mmol/L Calcium (8.4-10.2) mg/dL Total Bilirubin (0.2-1.3) mg/dL AST (17-59) U/L ALT (4-49) U/L Alkaline Phosphatase (38-126) U/L Troponin I (0.000-0.034) ng/mL Total Protein (6.3-8.2) g/dL Albumin (3.5-5.0) g/dL Heterophile Antibody (Negative) Influenza Type A (PCR) Not Detected (Not Detectd) Influenza Type B (PCR) Not Detected (Not Detectd) RSV (PCR) Not Detected (Not Detectd) SARS-CoV-2 (PCR) Detected A (Not Detectd) - Radiology Data Radiology results: report reviewed, image reviewed One view x-ray of the chest is obtained. Report was reviewed in its entirety. Impression by Dr. Woody shows no acute process. Disposition Clinical Impression: COVID-19 Disposition: HOME SELF-CARE Condition: Good Instructions (If sedation given, give patient instructions): Coronavirus Disease 2019 (COVID-19) Additional Instructions: Increase fluids. Rest. Take Tylenol Motrin to treat her fever. You must quarantine for 2 weeks since symptom onset. Follow-up with a primary care physician for recheck in 1-2 days. Return to the emergency department for any new, worsening, or concerning symptoms. Is patient prescribed a controlled substance at d/c from ED?: No Referrals: Emory Fraga DO [Primary Care Provider] - 1-2 days Time of Disposition: 21:20
[2020-11-17 21:40] VITALS: BP 108/58; PULSE 81; RESP 18; TEMP 98.8
== END 2020-11-17 22:00 | disposition home or self-care (01) ==
LOC: EC 18:59
DX: U07.1 COVID-19 (principal); Z90.49 Acquired absence of other specified parts of digestive tract
CPT/HCPCS: 36415; 71045; 80053; 83605; 84484; 85025; 85610; 85730; 86308; 87040; 87636; 93005; 99284

== ENCOUNTER 2021-09-26 16:19 | Observation (INO) | payer OTHER ==
[2021-09-26] MEDS ORDERED: ASPIRIN 81 MG PO STA (16:38)
[2021-09-26] MEDS ORDERED: NITROGLYCERIN SL TABS 0.4 MG TAB SUBLINGUAL STA (16:38)
--- NOTE | 2021-09-26 16:40 | ED ---
Chest Pain HPI - General Chief Complaint: Chest Pain Stated Complaint: chest pain ,dizziness,shaky,headache Time Seen by Provider: 09/26/21 16:30 Source: patient, RN notes reviewed Mode of arrival: wheelchair Limitations: no limitations - History of Present Illness Initial Comments: This a 46-year-old male presents emergency Department with chief complaint chest pain. Patient states that he's been having chest pain last week but states today it greatly worsen. Patient states he started on anterior chest pain, back pain. Patient states feels like a tight squeezing type pressure. Patient states blood pressure is elevated. He states he's been trying to fast, takes supplements a low-dose blood pressure. Patient denies any fevers or chills no cough cold like symptoms. Patient states that he does have a cardiac family history and states he has been in the hospital for high blood pressure past. Patient took 2 aspirin prior arrival - Related Data Previous Rx's Medication Instructions Recorded Aspirin 81 mg PO DAILY chew 08/19/18 Allergies Allergy/AdvReac Type Severity Reaction Status Date / Time No Known Allergies Allergy Verified 09/26/21 17:20 Review of Systems ROS Statement: Those systems with pertinent positive or pertinent negative responses have been documented in the HPI. ROS Other: All systems not noted in ROS Statement are negative. EKG Findings - EKG Comments: EKG Findings:: EKG performed at 16:31/rhythm rate of 86 MO 146 QRS 106 QT/QTC 394/471 Past Medical History Past Medical History: Hypertension History of Any Multi-Drug Resistant Organisms: None Reported Past Surgical History: Cholecystectomy, Tonsillectomy Past Anesthesia/Blood Transfusion Reactions: No Reported Reaction Past Psychological History: No Psychological Hx Reported Smoking Status: Never smoker Past Alcohol Use History: None Reported Past Drug Use History: None Reported - Past Family History Father Family Medical History: CVA/TIA Additional Family Medical History / Comment(s): 2 brothers healthy one sister healthy 2 daughters healthy 2 sons healthy Mother Family Medical History: CVA/TIA General Exam Limitations: no limitations General appearance: alert, in no apparent distress Head exam: Present: atraumatic, normocephalic, normal inspection Eye exam: Present: normal appearance, PERRL, EOMI. Absent: scleral icterus, conjunctival injection, periorbital swelling ENT exam: Present: normal exam, mucous membranes moist Neck exam: Present: normal inspection, full ROM. Absent: tenderness, meningismus, lymphadenopathy Respiratory exam: Present: normal lung sounds bilaterally. Absent: respiratory distress, wheezes, rales, rhonchi, stridor, chest wall tenderness Cardiovascular Exam: Present: regular rate, normal rhythm, normal heart sounds. Absent: systolic murmur, diastolic murmur, rubs, gallop, clicks GI/Abdominal exam: Present: soft, normal bowel sounds. Absent: distended, tenderness, guarding, rebound, rigid Course Vital Signs 09/26/21 09/26/21 16:23 18:06 Temperature 99.2 F Pulse Rate 97 Pulse Rate [ 78 [employer] ] Respiratory 18 Rate Blood Pressure 154/85 O2 Sat by Pulse 98 Oximetry Chest Pain MDM - MDM 46-year-old presented for chest pain. Patient's been having elevated blood pressure, chest pain does worsen. Patient's multiple risk factors. Patient be admitted for cardiology evaluation Disposition Clinical Impression: Chest pain Disposition: ADMITTED IP TO THIS [facility] Condition: Fair Referrals: None,Stated [Primary Care Provider] - 1-2 days
[2021-09-26 16:56] LABS: Basophils % (A) 0 %; Eosinophils % (A) 1 %; HCT 49.8 % (39.0-53.0); HGB 17.3 gm/dL (13.0-17.5); Lymphocytes # (A) 1.9 k/uL (1.0-4.8); Lymphocytes % (A) 23 %; MCHC 34.6 g/dL (31.0-37.0); MCV 89.6 fL (80.0-100.0); Mean Platelet Volume 7.4; Monocytes # (A) 0.4 k/uL (0-1.0); Monocytes % (A) 5 %; Neutrophils # (A) 5.6 k/uL (1.3-7.7); Neutrophils % (A) 68 %; Platelet Count 255 k/uL (150-450); RBC 5.56 m/uL (4.30-5.90); RDW 13.1 % (11.5-15.5); WBC 8.2 k/uL (3.8-10.6)
[2021-09-26 17:04] LABS: ALT 52 U/L (4-49); AST 35 U/L (17-59); African American GFR (CKD) >90 (>60 ml/min/1.73 sqM); Albumin 4.8 g/dL (3.5-5.0); Alkaline Phosphatase 67 U/L (38-126); Anion Gap 13 mmol/L; Blood Urea Nitrogen 16 mg/dL (9-20); Carbon Dioxide 22 mmol/L (22-30); Chloride 99 mmol/L (98-107); Glucose 125 mg/dL (74-99); Magnesium 1.9 mg/dL (1.6-2.3); Non-African American GFR(CKD) >90 (>60 ml/min/1.73 sqM); Sodium 134 mmol/L (137-145)
[2021-09-26 17:11] LABS: Partial Thromboplastin Time 24.9 sec (22.0-30.0); Prothrombin Time 10.4 sec (9.0-12.0)
--- NOTE | 2021-09-26 17:55 | XR ---
EXAMINATION TYPE: XR chest 2V DATE OF EXAM: 09/26/2021 COMPARISON: 11/17/2020 HISTORY: Chest pain TECHNIQUE: 2 views FINDINGS: Heart and mediastinum are normal. Lungs are clear. Diaphragm is normal. Bony thorax is inta ct. IMPRESSION: Normal chest. No change.
[2021-09-26] MEDS ORDERED: NITROGLYCERIN SL TABS 0.4 MG TAB SUBLINGUAL PRN (18:28)
[2021-09-26] MEDS ORDERED: HEPARIN SODIUM,PORCINE/PF 5,000 UNIT/0.5 ML SYRINGE SQ STA (18:29)
--- NOTE | 2021-09-26 18:59 | CT ---
EXAMINATION TYPE: CT brain wo con DATE OF EXAM: 09/26/2021 COMPARISON: 06/21/2013 HISTORY: Hypertension and headache. CT DLP: 1231.4 mGycm Automated exposure control for dose reduction was used. Ventricles have normal size. There is no mass effect or midline shift. There is no sign of intracrani al hemorrhage. The calvarium is intact. There is normal aeration of the mastoid sinuses. IMPRESSION: Negative unenhanced head CT scan. No change.
[2021-09-27] MEDS: ASPIRIN 325 MG TAB PO SCH (10:25)
[2021-09-27 11:33] LABS: Chol/HDL Ratio 5.56 Ratio; LDL Cholesterol,Calculated 218.9 mg/dL (0.0-131.0)
--- NOTE | 2021-09-27 12:58 | P.CRDCN ---
History of Present Illness Consult date: 09/27/21 History of present illness: HISTORY OF PRESENTING ILLNESS This is a pleasant 46-year-old male past medical history significant for hypertension and cardiomyopathy. He follows in the office with Dr. Hendrickson. We have been asked to see in consultation for chest pain. Patient presented to the ER with complaints of chest pain 1 week, it radiated to his back. Patient also reports he had dizziness and headache. Patient's blood pressure was elevated in the ER. CT of the brain was completed for severe headache and found to be negative for an acute process. His blood pressure is better controlled today. Patient had Covid in October 2020, at that same time he had a spider bite. Since then patient has developed intermittent tingling and shock-like pain in his knee and heels, he also has it in his left leg and groin. He also has nonvisible tremor sensation. Patient today denies chest pain, sustained palpitations, dyspnea, syncope, edema, orthopnea, PND, orn history of neural focal deficits. Patient was concerned that he has Lyme disease. Patient was tested by his primary he was found to be negative, he saw a homeopathic who also tested him for Lyme disease and found him to be positive. Patient underwent an echocardiogram in 2018 which revealed mild-moderate LV dysfunction, moderate global hypokinesis of LV, an ejection fraction between 40-45%, and mild mitral and tricuspid regurgitation. Patient's cardiac catheterization in 2018 revealed normal coronary arteries with moderately impaired left ventricular systolic function. Patient's EKG showed normal sinus rhythm. An troponins were negative 3. Blood pressure 123/69, 61 heart rate, 18 respirations, oxygen saturation 97% on room air, afebrile. Will obtain echocardiogram to evaluate cardiomyopathy and myocardial function. Will obtain a dobutamine stress echo to rule out myocardial ischemia. Patient's cholesterol is elevated, advised patient to maintain a low-fat low-sodium diet, increase activity and exercise. Will assess cholesterol in 3 months, if no improvement with diet and lifestyle modifications will consider starting patient on a statin at that time. DIAGNOSTICS EKG reveals normal sinus rhythm. Chest xray negative for acute cardiopulmonary process. Laboratory reviewed, WBCs 8.2, hemoglobin 7.3, platelet count 255, INR 1, d- dimer negative, sodium 134, potassium 4, BUN 16, creatinine 0.97, magnesium 1.9, AST 35, ALT 52, troponins negative 3, cholesterol 293, LDL 218, triglycerides 107, HDL 52. Current cardiac medications include none. Review of Systems REVIEW OF SYSTEMS At the time of my exam: CONSTITUTIONAL: Denies fever or chills. EYES: Negative for vision changes ENT: Negative for hearing loss CARDIOVASCULAR: Denies chest pain, shortness of breath, diaphoresis, orthopnea, PND or palpitations. VASCULAR: Denies edema RESPIRATORY: Denies cough. GASTROINTESTINAL: Denies abdominal pain, diarrhea, constipation, nausea or vomi ting. MUSCULOSKELETAL: Denies myalgias. NEUROLOGIC: Denies numbness, tingling, headache or weakness. ENDOCRINE: Denies fatigue, weight change, polydipsia or polyurina. GENITOURINARY: Denies burning, hematuria or urgency with micturation. HEMATOLOGIC: Denies history of anemia or bleeding. DERMATOLOGY: Denies rash or skin sores PSYCH: Negative for depression or hallucinations. Past Medical History Past Medical History: Hypertension History of Any Multi-Drug Resistant Organisms: None Reported Past Surgical History: Cholecystectomy, Tonsillectomy Past Anesthesia/Blood Transfusion Reactions: No Reported Reaction Past Psychological History: No Psychological Hx Reported Smoking Status: Never smoker Past Alcohol Use History: None Reported Past Drug Use History: None Reported - Past Family History Father Family Medical History: CVA/TIA Additional Family Medical History / Comment(s): 2 brothers healthy one sister healthy 2 daughters healthy 2 sons healthy Mother Family Medical History: CVA/TIA Medications and Allergies Home Medications Medication Instructions Recorded Confirmed Type Aspirin 81 mg PO DAILY chew 08/19/18 09/26/21 Rx Allergies Allergy/AdvReac Type Severity Reaction Status Date / Time No Known Allergies Allergy Verified 09/26/21 17:20 Physical Exam Vitals: Vital Signs Temp Pulse Pulse Pulse Resp BP BP 09/27/21 07:30 97.7 F 61 18 123/69 09/27/21 02:00 98.0 F 62 16 120/74 09/26/21 20:47 98.6 F 74 16 135/83 09/26/21 19:45 75 18 123/63 09/26/21 18:06 78 09/26/21 16:23 99.2 F 97 18 154/85 Pulse Ox 09/27/21 07:30 97 09/27/21 02:00 96 09/26/21 20:47 97 09/26/21 19:45 96 09/26/21 18:06 09/26/21 16:23 98 Intake and Output 09/26/21 09/27/21 09/27/21 22:59 06:59 14:59 Other: Voiding Method Toilet Toilet Toilet # Voids 1 2 Weight 99.79 kg PHYSICAL EXAMINATION VITAL SIGNS: Reviewed CONSTITUTIONAL: No apparent distress. HEENT: Head is normocephalic. Pupils are equal, round. Sclerae anicteric. Mucous membranes of the mouth are moist. NECK: No JVD. No carotid bruit. RESPIRATORY: Lungs are clear to auscultation. No chest wall tenderness is noted on palpation or with deep breathing. CARDIAC: Regular rate and rhythm. S1, S2 heard. No murmurs, gallops or rub. ABDOMEN: Soft, nontender. EXTREMITIES: 2+ peripheral pulses, no lower extremity edema and no calf t enderness. NEUROLOGIC EXAMINATION: Patient is awake, alert and oriented x3. INTEGUMENTARY: Warm, absent for rashes or sores PSYCH: Negative for depression or hallucinations, mood appropriate. Results 09/26/21 16:46 09/26/21 16:46 Cardiac Enzymes 09/26/21 09/26/21 09/26/21 Range/Units 16:46 16:46 21:08 AST 35 (17-59) U/L Troponin I <0.012 0.013 (0.000-0.034) ng/mL 09/27/21 Range/Units 00:35 AST (17-59) U/L Troponin I <0.012 (0.000-0.034) ng/mL Coagulation 09/26/21 Range/Units 16:46 PT 10.4 (9.0-12.0) sec APTT 24.9 (22.0-30.0) sec Lipids 09/26/21 Range/Units 16:46 Triglycerides 107.00 (0.00-149.00) mg/dL Cholesterol 293.00 H (0.00-200.00) mg/dL HDL Cholesterol 52.70 (40.00-60.00) mg/dL Cholesterol/HDL Ratio 5.56 Ratio CBC 09/26/21 Range/Units 16:46 WBC 8.2 (3.8-10.6) k/uL RBC 5.56 (4.30-5.90) m/uL Hgb 17.3 (13.0-17.5) gm/dL Hct 49.8 (39.0-53.0) % Plt Count 255 (150-450) k/uL Comprehensive Metabolic Panel 09/26/21 Range/Units 16:46 Sodium 134 L (137-145) mmol/L Potassium 4.0 (3.5-5.1) mmol/L Chloride 99 (98-107) mmol/L Carbon Dioxide 22 (22-30) mmol/L BUN 16 (9-20) mg/dL Creatinine 0.97 (0.66-1.25) mg/dL Glucose 125 H (74-99) mg/dL Calcium 10.0 (8.4-10.2) mg/dL AST 35 (17-59) U/L ALT 52 H (4-49) U/L Alkaline Phosphatase 67 (38-126) U/L Total Protein 8.0 (6.3-8.2) g/dL Albumin 4.8 (3.5-5.0) g/dL Current Medications Generic Name Dose Route Start Last Admin Trade Name Freq PRN Reason Stop Dose Admin Aspirin 325 mg 09/27/21 09:00 09/27/21 10:25 Aspirin 325 Mg Tab PO 325 mg DAILY AMY Administration Dobutamine HCl/Dextrose 500 mg 250 mls @ 29.937 mls/hr 09/28/21 06:00 / IV Solution IV 09/28/21 20:00 .[id number] PRN Per Protocol Protocol 10 MCG/KG/MIN Nitroglycerin 0.4 mg 09/26/21 18:28 Nitroglycerin Sl Tabs 0.4 Mg Tab SUBLINGUAL Q5M PRN Chest Pain Intake and Output 09/26/21 09/27/21 09/27/21 22:59 06:59 14:59 Other: Voiding Method Toilet Toilet Toilet # Voids 1 2 Weight 99.79 kg 09/26/21 16:46 09/26/21 16:46 Assessment and Plan Assessment: Pericardial chest pain Negative troponins 3 Nonischemic cardiomyopathy Hyperlipidemia Hypertension History of Covid-19 Plan: Will obtain an echocardiogram to evaluate nonischemic cardiomyopathy and my ocardial function Will obtain a dobutamine echo to rule out myocardial ischemia Will continue to monitor blood pressure Patient encouraged to maintain a low-fat low-sodium diet, increase activity and exercise. Will reassess cholesterol in 3 months. If no improvement with dietary and lifestyle modifications will start patient on a statin. Continue telemetry monitoring Further recommendations based on clinical course The above impression and plan of care have been discussed and directed by the signing physician. Leatha Michelle, nurse practitioner, acting as scribe for signing physician.
[2021-09-27] MEDS: GABAPENTIN 100 MG CAP PO SCH ×2 (17:20→21:14)
[2021-09-27] MEDS: ATORVASTATIN 10 MG TAB PO SCH (17:20)
--- NOTE | 2021-09-27 17:29 | HP ---
HISTORY AND PHYSICAL DATE OF SERVICE: 09/27/2021. CHIEF COMPLAINTS: Chest pain, aches and pains and multiple symptomatology. HISTORY OF PRESENT ILLNESS: This 46-year-old gentleman with a past medical history of hypertension, cholecystomy, tonsillectomy, not being followed by a primary physician in the outpatient setting, was apparently having chest pains. The patient came to [facility] and was admitted for further evaluation. Cardiology is monitoring the patient regarding the chest pain workup. The patient apparently has a history of cardiomyopathy, also. The pain was felt in the anterior part of the chest. The patient also had associated symptoms of dizziness, headache, shooting pains. The patient apparently had a bug bite on the back which was thought to be a spider bite. Subsequently the patient was concerned about symptoms of Lyme disease with shooting pains, joint pains and other symptomatology. The 2D echo showed ejection fraction 40% to 45% previously and a previous cardiac catheterization was normal, also. There is no history of any fever, rigor or chills. PAST MEDICAL HISTORY: History of hypertension, history of cholecystectomy, tonsillectomy. MEDICATIONS: Medications prior to admission include aspirin. ALLERGIES: NONE. FAMILY HISTORY: No history of heart disease or strokes in the family. SOCIAL HISTORY: No history of smoking. No history of alcohol intake. REVIEW OF SYSTEMS: ENT: No diminished hearing. No diminished vision. CARDIOVASCULAR SYSTEM: As mentioned earlier. RESPIRATORY SYSTEM: As mentioned earlier. GI: No nausea, vomiting, diarrhea. : No dysuria. NERVOUS SYSTEM: No numbness, weakness. ALLERGY/IMMUNOLOGY: No asthma or hay fever. MUSCULOSKELETAL: As mentioned earlier. HEMATOLOGY/ONCOLOGY: No history of anemia. ENDOCRINE: No history of diabetes or hypothyroidism. CONSTITUTIONAL: As mentioned earlier. DERMATOLOGY: Negative. RHEUMATOLOGY: Negative. PSYCHIATRY: As mentioned earlier. PHYSICAL EXAMINATION: Patient is alert, oriented x3. Pulse is 76, blood pressure 129/76, respiration 18, temperature 98.2, pulse ox 96% on room air. HEENT: Conjunctivae normal. NECK: No jugular venous distention. CARDIOVASCULAR: S1, S2 muffled. RESPIRATION: Breath sounds diminished at the bases. No rhonchi. No crackles. ABDOMEN: Soft, nontender. No mass palpable. LEGS: No edema. No swelling. NERVOUS SYSTEM: Higher functions as mentioned earlier. Moves all 4 limbs. No focal motor or sensory deficit. LYMPHATICS: No lymph node palpable in neck, axillae or groin. SKIN: No ulcer, rash, bleeding. JOINTS: No active deforming arthropathy. LABS: CBC within normal limits. Sodium 134. Glucose 125. Cholesterol noted. ASSESSMENT: 1. Chest pain for evaluation. Rule out coronary artery disease. 2. Hyperlipidemia. 3. Rule out Lyme disease. 4. Increased random glucose. 5. Hyponatremia. 6. History of cardiomyopathy with chronic systolic dysfunction ejection fraction 40% to 45%. 7. Hypertension. 8. History of tonsillectomy. 9. History of cholecystectomy. 10.Obesity with body mass index 33.5. RECOMMENDATIONS AND DISCUSSION: In this 46-year-old gentleman who presented with multiple complex medical issues, we will monitor the patient closely, continue the current medications, continue symptomatic treatment. I recommend Lyme disease titers and basic labs. Otherwise, follow closely with Cardiology. Prognosis is guarded because of multiple complex medical issues. Further recommendations to follow. Will initiate Neurontin for the pain. I also recommend that the patient follow up closely with a primary physician and Cardiology as outpatient. Infectious disease evaluation by Dr. Giraldo also will be obtained as well as neuro evaluation to rule out the possibility of neuroborreliosis. MMODL / IJN: [id number] /
[2021-09-27 19:14] LABS: C Reactive Protein <0.5 mg/dL (<1.0)
[2021-09-27 19:29] LABS: Appearance,Urine Clear (Clear); Bilirubin,Urine Negative (Negative); Blood,Urine Negative (Negative); Color,Urine Yellow; Glucose,Urine (UA) Negative (Negative); Ketones,Urine Negative (Negative); Leukocyte Esterase,Urine Negative (Negative); Nitrite,Urine Negative (Negative); PH, Urine 5.5 (5.0-8.0); Protein,Urine Negative (Negative); Specific Gravity,Urine 1.026 (1.001-1.035); Urobilinogen,Urine <2.0 mg/dL (<2.0)
[2021-09-27 19:37] LABS: Amphetamine Screen,Urine Not Detected (NotDetected); Barbiturate Screen,Urine Not Detected (NotDetected); Benzodiazepines Screen,Urine Not Detected (NotDetected); Cocaine Screen,Urine Not Detected (NotDetected); Methadone Screen, Urine Not Detected (NotDetected); Opiate Screen,Urine Not Detected (NotDetected); Oxycodone Screen, Urine Not Detected (NotDetected); Phencyclidine Screen,Urine Not Detected (NotDetected); Tricyclic Antidepressant,Urine Not Detected (NotDetected); Urn Cannabinoid Scrn Not Detected (NotDetected)
[2021-09-28] MEDS ORDERED: DOBUTamine DRIP for NUC MED 500 MG in DEXTROSE/WATER 1 250ML.BAG IV PRN (06:00)
[2021-09-28] MEDS ORDERED: DOBUTamine DRIP for NUC MED 500 MG/250 ML BAG IV ONE (08:00)
--- NOTE | 2021-09-28 11:03 | P.CNNES ---
History of Present Illness Consult date: 09/28/21 Requesting physician: Navid Aguirre Reason for Consult: Neuroborreliosis? History of Present Illness: This is a 46-year-old right-handed gentleman with medical history of hypertension, COVID-19 pneumonia who presented to the emergency department on 09/26/2020 because of chest pain. Neurology is consulted the for questionable neuroborreliosis. She is accompanied with his mother was at bedside. According to the patient in September 2020 he had as he describes a bump over the middle left side of the back and he described it was an erythematous con of raised and the oblong-shaped and he had the for 3-4 weeks and he said initially that was increasing in size but then after 3-4 weeks resolved. He is not sure regarding the bite she suspects it spider but unsure and has not seen visibly seen any insect bite him. Then in October 2020 he had a fever for 9-10 days and it was the fever was in the low 100 Fahrenheit. He said that he was having difficulty sleeping he was hallucinating during that time. He came to the hospital and he was evaluated and he was told that he has COVID-19 pneumonia in October 2020. Patient stated that since November still August 2021 he's been having joint pain in his elbow knees ankles and he is also having soreness of his thigh muscles. He also has a jolt sensation/electrical shock throughout his joints bodies there are brief. He also has headache over bilateral anterior temporal frontal and he describes him as a pressure headache, constant, they can be in the range of 2-10 out of 10 in severity. It's usually 2/10 but the 10 out of 10 and can last for about 2 hours at. He denies any photophobia, phonophobia, any nausea or vomiting. He denies any loss of consciousness, denies any urinary or bowel incontinence. He denies any jerking of any extremities but he has the sensation that the an internal vibration sensation. He also feels he is having visual disturbance in that he describes in his own words fuzzy at vision both eyes. Patient had rheumatoid factor tested the in our facility in 06/23/2021 and it was negative. He also had Lyme disease tested on the 06/23/2029 which was also negative. He denies any history of stroke, TIA or seizures in the pas t. She denies of any fevers, chills or cough. As stated that his only medication is aspirin 81 mg. Otherwise he denies any medication. He stated that he followed up with his primary care physician and that he tested the stated the Lyme disease was negative he followed up with a homeopathic and from the story he told him possibly have Lyme disease but no lab testing or any imaging was done on him. He said that his blood pressure is controlled with diet and he said in the last few weeks it's been slightly elevated. SARS Covid-2 PCR was positive on 11/17/2020 in our facility. Some of the workup consisted of: Initial vital signs his blood pressure of 154/85, heart rate of 97, respiratory of 18, temperature of 99.2 Fahrenheit oral, respiratory rate of 18, pulse ox of 98% room air. Patient has been afebrile during this hospital visit. White blood cell is 8.2, ESR is 2 and the rest of the CBC with differential is unremarkable Chemistry panel sodium is 134, creatinine is 0.97, calcium 7.0, AST of 35, ALT 52, CRP <0.5. Lipid panel is a triglyceride of 107, cholesterol 293, LDLs 218, HDL of 52. Urinalysis is negative for urinary tract infection Correia virus PCR was not detected Urine drug screen is nondetected. CT of the head is reported as negative unenhanced head CT scan. No change. I personally reviewed the CT of the head there is no acute or subacute ischemia and there is no and parenchymal hemorrhage. ID is consulted for questionable Lyme disease by primary team. Review of Systems Review of system: The 12 point system was reviewed and apparent positive and negative per HPI. Past Medical History Past Medical History: Hypertension History of Any Multi-Drug Resistant Organisms: None Reported Past Surgical History: Cholecystectomy, Tonsillectomy Past Anesthesia/Blood Transfusion Reactions: No Reported Reaction Past Psychological History: No Psychological Hx Reported Smoking Status: Never smoker Past Alcohol Use History: None Reported Past Drug Use History: None Reported - Past Family History Father Family Medical History: CVA/TIA Additional Family Medical History / Comment(s): 2 brothers healthy one sister healthy 2 daughters healthy 2 sons healthy Mother Family Medical History: CVA/TIA Medications and Allergies Home Medications Medication Instructions Recorded Confirmed Type Aspirin 81 mg PO DAILY chew 08/19/18 09/26/21 Rx Allergies Allergy/AdvReac Type Severity Reaction Status Date / Time No Known Allergies Allergy Verified 09/26/21 17:20 Physical Examination - Vital Signs Vital Signs: Vital Signs Temp Pulse Resp BP Pulse Ox 09/28/21 07:00 97.8 F 68 18 125/66 96 09/28/21 02:21 97.8 F 70 16 125/69 96 09/27/21 18:59 98.5 F 72 16 129/75 96 09/27/21 15:00 98.2 F 76 18 129/76 96 Intake and Output 09/27/21 09/28/21 09/28/21 22:59 06:59 14:59 Intake Total 500 Balance 500 Intake: Oral 500 Other: Voiding Method Toilet # Voids 1 1 GENERAL: The patient is lying in bed and is not in acute distress. CHEST: The heart rate is regular rate rhythm. No murmurs to auscultation. No carotid bruit bilaterally. LUNG: Clear to auscultation bilaterally no wheezing noted throughout. Not labored breathing. ABDOMEN/GI: Bowel sounds present in all 4 quadrants. No tenderness to palpation throughout. NEUROLOGICAL: Higher mental function: The patient is awake, alert, oriented to self, place and time. Patient is following commands. No aphasia and no neglect. Cranial nerves: The pupils are round, equal and reactive to light and accommodation. Visual alaniz are full to confrontation throughout. Extraocular movement is intact no nystagmus is noted. Facial sensation is normal to touch throughout. The facial strength is normal throughout. Hearing is normal bilaterally to hand rub. Tongue is midline and moved [id number] without any difficulty. No dysarthria is noted. Shoulder shrug is normal bilaterally. Motor: Gait is normal. The strength is 5 over 5 throughout. Normal tone and bulk. Cerebellum: Normal finger to nose heel to woods bilaterally. Sensation: Sensation is normal to touch throughout. Reflexes (right/left): 2+ throughout except ankles are 1+ bilaterally. Plantars are downgoing bilaterally. Results - Laboratory Findings CBC and BMP: 09/26/21 16:46 09/26/21 16:46 Abnormal Lab Findings: Abnormal Labs 09/26/21 09/26/21 16:46 16:46 Sodium 134 L Glucose 125 H ALT 52 H Cholesterol 293.00 H LDL Cholesterol, Calc 218.9 H Assessment and Plan Assessment: * ?Rash over the left side of posterior chest in 09/2020 lasting 3-4 weeks followed by fever lasting 9-10 days, cephalgia, joint pain, sleep disturbance, internal vibration sensation, transient electrical shock sensation of joints: Unsure exact etiology (had Lyme tested on 06/23/2021 and was negative). * Acute chest pain * History of COVID-19 [place] (10/2020) * History of hypertension and currently it is controlled (stated usually contro lled with diet) Plan: Primary team ordered SANJUANA, Lyme disease antibody. I ordered MRI of the brain and C-spine with and without, consulted anesthesiology team for CSF study (and will test for lyme disease). Ordered a routine EEG. I'll not start at patient on antiepileptic unless there is epileptiform discharges or seizure on the EEG. Ordered vitamin B12, folate and methylmalonic acid Recommend possible EMG with nerve conduction study of upper and lower extremity as outpatient if unknown etiology still. Infection disease team is consulted for questionable Lyme disease by the primary team. Cardiology team is on board for acute chest pain We'll defer the rest of the medical management to the primary team On discharge the patient need to follow-up with a neurologist within 1-2 weeks and digital marketing program manager. Plan is discussed in detailed with the patient and his mother was at bedside as well as the plan was discussed with the patient's nurse. Thank you for the consultation. Sanchez Love M.D. Neuro-Hospitalist Time with Patient: Greater than 30
[2021-09-28 11:07] LABS: Basophils % (A) 1 %; Eosinophils # (A) 0.1 k/uL (0-0.7); Eosinophils % (A) 1 %; HCT 49.4 % (39.0-53.0); HGB 16.4 gm/dL (13.0-17.5); Lymphocytes # (A) 2.1 k/uL (1.0-4.8); Lymphocytes % (A) 35 %; MCH 30.5 pg (25.0-35.0); MCHC 33.2 g/dL (31.0-37.0); MCV 91.7 fL (80.0-100.0); Mean Platelet Volume 7.3; Monocytes # (A) 0.4 k/uL (0-1.0); Monocytes % (A) 6 %; Neutrophils # (A) 3.1 k/uL (1.3-7.7); Neutrophils % (A) 54 %; Platelet Count 237 k/uL (150-450); RBC 5.39 m/uL (4.30-5.90); RDW 12.9 % (11.5-15.5); WBC 5.9 k/uL (3.8-10.6)
[2021-09-28 11:45] LABS: African American GFR (CKD) >90 (>60 ml/min/1.73 sqM); Anion Gap 12 mmol/L; Blood Urea Nitrogen 14 mg/dL (9-20); Calcium 9.4 mg/dL (8.4-10.2); Carbon Dioxide 23 mmol/L (22-30); Chloride 103 mmol/L (98-107); Glucose 96 mg/dL (74-99); Non-African American GFR(CKD) >90 (>60 ml/min/1.73 sqM); Potassium 4.3 mmol/L (3.5-5.1); Sodium 138 mmol/L (137-145)
--- NOTE | 2021-09-28 14:03 | P.PN ---
Subjective This is a pleasant 46-year-old male past medical history significant for hypertension and non-ischemic cardiomyopathy.He does not follow with a cardi ologist. We have been asked to see in consultation for chest pain. Patient presented to the ER with complaints of chest pain 1 week, it radiated to his back. Patient also reported dizziness and headache. Patient underwent an echocardiogram in 2018 which revealed mild-moderate LV dysfunction, moderate global hypokinesis of LV, an ejection fraction between 40-45%, and mild mitral and tricuspid regurgitation. Patient's cardiac catheterization in 2018 revealed normal coronary arteries with moderately impaired left ventricular systolic function. Patient did not follow up in the office after this. Patient's EKG on admission revealed normal sinus rhythm, no significant changes to suggest ischem ia. An troponins were negative 3. Patient also describes history of erythematous bump over the middle left side of the back and some generalized joint pains. Patient suspected that he might be a spider bite. Neurology was consulted to assess for neuroberrilosis. Plan for patient to undergo CSF study and EEG per neurology. Patient is also being workup for Lyme disease. PHYSICAL EXAMINATION VITAL SIGNS: Reviewed GENERAL: Well-appearing, well-nourished and in no acute distress. NECK: Supple without JVD or thyromegaly. LUNGS: Breath sounds clear to auscultation bilaterally. Respiration equal and unlabored. No wheezes, rales or rhonchi. HEART: Regular rate and rhythm without murmurs, rubs or gallops. S1 and S2 heard. EXTREMITIES: Normal range of motion, no edema. No clubbing or cyanosis. Peripheral pulses intact. ASSESSMENT Chest pain, atypical, acute coronary syndrome has ruled out History of hypertension Hyperlipidemia Nonischemic cardiomyopathy with mildly reduced EF 40-45% in 2018 PLAN Patients dobutamine stress echo was negative for inducible ischemia. Mild cardiomyopathy with an EF of 45%. From a cardiology perspective, no further inpatient workup. We will follow the patient has needed. Please reconsult if needed. Rest of workup per primary, infectious disease and neurology. Patient to follow-up outpatient in the office Objective - Vital Signs Vital signs: Vital Signs Temp 97.8 F 09/28/21 07:00 Pulse 68 09/28/21 07:00 Resp 18 09/28/21 07:00 BP 125/66 09/28/21 07:00 Pulse Ox 96 09/28/21 07:00 Intake & Output 09/27/21 09/28/21 09/28/21 18:59 06:59 18:59 Intake Total 1000 Balance 1000 Intake: Oral 1000 Other: Voiding Method Toilet Toilet Toilet # Voids 2 1 - Labs CBC & Chem 7: 09/28/21 10:31 09/28/21 10:31 Labs: Abnormal Lab Results - Last 24 Hours (Table) 09/26/21 Range/Units 16:46 Cholesterol 293.00 H (0.00-200.00) mg/dL LDL Cholesterol, Calc 218.9 H (0.0-131.0) mg/dL
[2021-09-28] MEDS: ATORVASTATIN 10 MG TAB PO SCH (14:47)
[2021-09-28] MEDS: GABAPENTIN 100 MG CAP PO SCH ×3 (14:47→21:13)
--- NOTE | 2021-09-28 14:51 | MR ---
EXAMINATION TYPE: MR brain/cspine wo/w DATE OF EXAM: 09/28/2021 COMPARISON: CT brain from 2 days ago. MRI cervical spine May 08, 2012. HISTORY: Headaches, Pulsation in head, electrical shocks all over body intermittently. TECHNIQUE: Multiplanar, multisequence images of the brain and brainstem and cervical spine are all performed wit hout and with IV contrast, utilizing 10 mL intravenous Gadavist . FINDINGS: BRAIN: Diffusion weighted images demonstrate no evidence of a recent infarct or other diffusion abnormality. The ventricular system and cisternal spaces are normal in size and appearance. The brain volume is age appropriate. Some scattered foci of T2 hyperintensity are seen throughout the white matter bilate rally. Approximately 40 small scattered lesions are seen. Lesions are nonspecific in appearance and d istribution. Midline structures demonstrate normal morphology. The craniocervical junction appears within normal limits. Post contrast images demonstrate no abnormal enhancement. The dural venous sinuses appear pa tent. The visualized sinuses are clear and the globes are intact. IMPRESSION: Mild to moderate nonspecific white matter changes. No enhancing lesions are evident. C-SPINE: FINDINGS: Sagittal images of the cervical spine show the craniocervical junction to remained within n ormal limits. The cervical and upper thoracic spinal cord remains normal in caliber and signal. [place] tebral alignment is stable and satisfactory. The vertebral body and intravertebral disk heights luz in normal. The bone marrow signal intensity is within normal limits. No abnormal postcontrast enhanc ement. Axial images at C2-C3 level remain within normal limits. Axial images at C3-C4 level show more prominent broad-based left paracentral disc protrusion mildly e ffacing the anterior thecal sac, patent bilateral neural foramina. Axial images at C4-C5 levels show uncovertebral facet degenerative changes causing asymmetric mild to moderate left-sided neural foraminal narrowing slightly more prominent than prior study. Axial images at C5-C6 level shows broad-based posterior disc protrusion mildly facing anterior thecal sac and causing [id number] left-sided neural foraminal narrowing more prominent from prior marcy dy. Axial images at C6-C7 and C7-T1 levels remain within normal limits. IMPRESSION: Increasing degenerative changes upper to mid cervical spine noted as detailed above.
--- NOTE | 2021-09-28 16:00 | ECHOF ---
Referral Reason:chest pain MEASUREMENTS -------- HEIGHT: 172.7 cm WEIGHT: 99.8 kg BP: RVIDd: 2.3 cm (< 3.3) IVSd: 1.1 cm (0.6 - 1.1) LVIDd: 5.5 cm (3.9 - 5.3) LVPWd: 1.1 cm (0.6 - 1.1) IVSs: 1.7 cm LVIDs: 2.8 cm LVPWs: 2.1 cm Ao Diam: 2.7 cm (2.0 - 3.7) AV Cusp: 1.9 cm (1.5 - 2.6) LA Diam: 3.1 cm (2.7 - 3.8) MV EXCURSION: 12.148 mm (> 18.000) MV EF SLOPE: 130 mm/s (70 - 150) EPSS: 1.0 cm MV E Paul: 0.77 m/s MV DecT: 212 ms MV A Paul: 0.52 m/s MV E/A Ratio: 1.47 RAP: 5.00 mmHg RVSP: 10.09 mmHg FINDINGS -------- This was a technically difficult study with suboptimal views. The left ventricular size is normal. Left ventricular wall thickness is normal. Overall left vent ricular systolic function is mildly impaired with, an EF between 45 - 50 %. The right ventricle is normal in size. The left atrial size is normal. The right atrial size is normal. Lumason used The aortic valve is trileaflet and appears structurally normal. The mitral valve is normal. There is trace mitral regurgitation. The tricuspid valve appears structurally normal. Trace tricuspid regurgitation present. Right jessica tricular systolic pressure is normal at < 35 mmHg. There is no pulmonic regurgitation present. The aortic root size is normal. IVC Not well visulized. There is no pericardial effusion. CONCLUSIONS -------- 1. The left ventricular size is normal. 2. Left ventricular wall thickness is normal. 3. Overall left ventricular systolic function is mildly impaired with, an EF between 45 - 50 %. 4. There is trace mitral regurgitation. 5. Trace tricuspid regurgitation present. 6. There is no pericardial effusion. ACID LEVELER: Pat Arboleda [facility]
--- NOTE | 2021-09-28 16:03 | EEG ---
ELECTROENCEPHALOGRAM REPORT DATE OF SERVICE: 09/28/2021 CLINICAL HISTORY: This is a 46-year-old gentleman with recurrent episode of "internal vibration sensation of body". A routine video EEG is obtained to evaluate for seizure and epileptiform discharges. RELEVANT MEDICATION: The patient is not on any antiepileptic drugs. EEG TYPE: A routine 21-channel EEG is performed with video using the 10/20 electrode placement system. DESCRIPTION: Awake and drowsy state is obtained. During awake state, the background consists of low to moderate voltage that is well modulated, well sustained of 9- 10 hertz activity. There was no physiological stage II sleep architecture seen. There is no focal slowing seen. Interictal and ictal is none. ACTIVATION PROCEDURE: Photic stimulation did evoke a posterior driving response at multiple flash frequencies. There is no abnormality during the photic stimulation. Hyperventilation is not performed. CLINICAL INTERPRETATION: This is a normal routine EEG. There is no focal slowing, epileptiform discharges or seizure on the EEG. Clinical correlation is recommended. ROSALEE / GRANTN: [id number] / KEILY
--- NOTE | 2021-09-28 18:06 | PN ---
PROGRESS NOTE DATE OF SERVICE: 09/28/2021 This 46-year-old gentleman who was admitted with multiple symptomatology of chest pains and aches and pains and neuropathic findings is being evaluated for Lyme's disease also. The SANJUANA screen is negative. The Lyme screen is pending at this time. Covid 19 is negative. Cholesterol is elevated. Dr. Love has recommended lumbar puncture and other studies. Stress test was negative. Brain cervical MRI showed DJD in the upper to mid cervical spine. Otherwise, stress test was negative. Mild cardiomyopathy, ejection fraction 45% was noted. Two-D echo was also noted. EXAM: On exam, alert and oriented x3. Pulse is 68, blood pressure 130/76, respirations 18, temperature 97.8, pulse ox 98% on room air. HEENT: Conjunctivae normal. Neck: No JVD. Cardiovascular: S1, S2. Respiration: Breath sounds diminished in the bases. Abdomen: Soft. Nervous system: No focal deficits. LABS: CBC and BMP noted today. MRA showed cervical DJD and SANJUANA is negative. ASSESSMENT: 1. Chest pain for evaluation, myocardial infarction ruled out, possibly musculoskeletal. 2. Hyperlipidemia. 3. Rule out Lyme's disease . 4. Increased random glucose. 5. Hyponatremia. 6. History of cardiac murmur with chronic systolic dysfunction, ejection fraction 40- 45 percent. 7. Hypertension. 8. History of tonsillectomy. 9. History of cholecystectomy. 10.Obesity with body mass index of 33.5. RECOMMENDATIONS AND DISCUSSION: Recommend to continue current medications, management. Symptomatic treatment. Continue with lumbar puncture, neuro studies. Otherwise monitor closely. Prognosis guarded. The patient had hyperlipidemia. A small dose of Lipitor has been initiated. MMODL / IJN: [id number] / [facility]
[2021-09-28] MEDS: ASPIRIN 325 MG TAB PO SCH (21:11)
[2021-09-28 21:12] LABS: Folate, Serum >20.00 ng/mL (4.40-31.00)
--- NOTE | 2021-09-28 23:03 | PN ---
PROGRESS NOTE DATE OF SERVICE: 09/28/2021 REASON FOR FOLLOW UP: History of tick bite and question of Lyme's disease. INTERVAL HISTORY: Patient is afebrile. The patient mentioned he is feeling slightly better. Denies any chest pain. No shortness of breath or cough. No nausea, vomiting, abdominal pain or diarrhea. EXAMINATION: His vital signs stable. T-max of 98. General description is a middle-aged male up in the bed in no distress. Respiratory system: Unlabored breathing, clear to auscultation anteriorly. Heart S1, S2. Regular rate and rhythm. Abdomen soft, no tenderness. LAB: Lab serologies currently pending. Sedimentation rate is normal. Creatinine is normal. DIAGNOSTIC IMPRESSION AND PLAN: Patient admitted to the hospital with nonspecific symptoms, mostly with aches and pains, not following the degree of an acute or chronic Lyme disease in this patient who to be quite a rash. We are waiting for the lyme serology. We will hold on any systemic antibiotic therapy at this point. Continue supportive care. MMODL / IJN: [id number] /
--- NOTE | 2021-09-29 08:54 | ECHOS ---
Stress Test Results/Findings: Exam Performed: dobutamine stress echo with con Exam Date: 09/28/21 Reason for Exam: CP Height: 5 ft 8 in Weight: 99.79 kg Protocol: DOBUTAMINE STRESS ECHO W/ LUMASON Stage: 30 mcg Duration of Exercise: 7:45 Resting Heart Rate: 68 Resting Blood Pressure: 121/74 Maximum Achieved Heart Rate: 169 Maximum Achieved Blood Pressure: 187/49 85% PMHR: 148 100% PMHR: 174 METS: NA Technologist Comment: Stress Test Results/Findings: Patient underwent dobutamine stress echo with infusion of dobutamine into Stage 3 for a total of 7 minutes and 45 seconds. Patient's maximum heart rate was 169 which represented 97% age-predicted maximum heart rate. Stress EKG portion: At baseline patient's EKG showed normal sinus rhythm, normal axis, incomplete left bundle branch block without significant ST or T-wave abnormalities. At peak dobutamine infusion, EKG showed no significant change from baseline. Stress echo portion: 2-D echocardiogram was performed in the parasternal long, personal short, apical 2 and apical four-chamber views at rest, low-dose, peak infusion and in recovery. At baseline, echocardiogram showed left ventricular ejection fraction 45% without wall motion abnormalities. With peak infusion, echocardiogram shows improvement in left ventricular ejection fraction, increase contractility, decrease in left ventricular end systolic dimension without wall motion abnormalities consistent with a normal response to dobutamine. Conclusions: 1. Normal stress EKG and echo response to dobutamine infusion without any evidence of inducible ischemia. 2. 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 [facility] [place] [facility]
[2021-09-29] MEDS ORDERED: ASPIRIN 81 MG PO SCH (09:00)
--- NOTE | 2021-09-29 09:54 | P.PN ---
Subjective Progress Note Date: 09/29/20 The patient is seen at bedside and he feels he stated that at midnight he had an episode for one hour where he had internal vibration sensation then resolved. Otherwise denies of any new neurological problems. Objective - Vital Signs Vital signs: Vital Signs Temp 97.6 F 09/29/21 08:43 Pulse 73 09/29/21 08:43 Resp 18 09/29/21 08:43 BP 119/80 09/29/21 08:43 Pulse Ox 97 09/29/21 08:43 Intake & Output 09/28/21 09/29/21 09/29/21 18:59 06:59 18:59 Intake Total 240 120 Balance 240 120 Weight 99.79 kg Intake: Oral 240 120 Other: Voiding Method Toilet # Voids 1 2 1 - Exam GENERAL: The patient is lying in bed and is not in acute distress. NEUROLOGICAL: Higher mental function: The patient is awake, alert, oriented to self, place and time. Patient is following commands. No aphasia and no neglect. Cranial nerves: The pupils are round, equal and reactive to light and accommodation. Visual alaniz are full to confrontation throughout. Extraocular movement is intact no nystagmus is noted. Facial sensation is normal to touch throughout. The facial strength is normal throughout. Hearing is normal bilaterally to hand rub. Tongue is midline and moved [id number] without any difficulty. No dysarthria is noted. Shoulder shrug is normal bilaterally. Motor: Gait is normal. The strength is 5 over 5 throughout. Normal tone and bulk. Cerebellum: Normal finger to nose heel to woods bilaterally. Sensation: Sensation is normal to touch throughout. Reflexes (right/left): 2+ throughout except ankles are 1+ bilaterally. Plantars are downgoing bilaterally. WORK-UP: White blood cell is 8.2, ESR is 2 and the rest of the CBC with differential is unremarkable Chemistry panel sodium is 134, creatinine is 0.97, calcium 7.0, AST of 35, ALT 52, CRP <0.5. Vitamin B12 is at thousand 180. Serum folate was more than 20 [place] is negative. Lipid panel is a triglyceride of 107, cholesterol 293, LDLs 218, HDL of 52. Urinalysis is negative for urinary tract infection [place] virus PCR was not detected Urine drug screen is nondetected. Routine EEG on 09/28/2021 is normal. There are no focal slowing, epileptiform discharges or seizure on the EEG. CT of the head is reported as negative unenhanced head CT scan. No change. I personally reviewed the CT of the head there is no acute or subacute ischemia and there is no and parenchymal hemorrhage. MRI of the brain w/o and w/o is reported as mild to moderate nonspecific white matter changes. No enhancing lesions are evident. MRI of the cervical spine was reported as increasing degenerative changes up or to mid cervical spine. 2-D echo was reported as left ventricle size is normal. Left ventricle wall thickness is normal. Ejection fraction of 45-50%. Dobutamine stress echo is reported as normal stress EKG and echo response to dobutamine infusion without any evidence of inducible ischemia. Mild cardiomyopathy with ejection fraction of 45% - Labs CBC & Chem 7: 09/28/21 10:31 09/28/21 10:31 Labs: Abnormal Lab Results - Last 24 Hours (Table) 09/28/21 Range/Units 10:31 Vitamin B12 1180.0 H (200.0-944.0) pg/mL Assessment and Plan Assessment: * ?Rash over the left side of posterior back on 09/2020 lasting 3-4 weeks fo llowed by fever lasting 9-10 days, cephalgia, joint pain, sleep disturbance, internal vibration sensation, transient electrical shock sensation of joints: Unsure exact etiology (had Lyme tested on 06/23/2021 and was negative). * Acute chest pain * Dyslipidemia * Mild cardiomyopathy (EF 45% per dobutamine stress echo) * History of COVID-19 [place] (10/2020) * History of hypertension and currently it is controlled (stated usually controlled with diet) Plan: Primary team ordered Lyme disease antibody and is pending. Consulted anesthesiology team for lumbar pucnture for CSF study (and will test for lyme disease). Ordered Oligoclonal band. Will see if CSF is suggestive of Multiple Sclerosis. Unsure if COVID-19 is related to his symptoms or his symptoms are isolated. Pending methylmalonic acid Recommend possible EMG with nerve conduction study of upper and lower extremity as outpatient if unknown etiology still. Infection disease team is consulted for questionable Lyme disease by the primary team. 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 Plan is discussed in detailed with the patient, his mother (who is at bedside) and his nurse. If CSF study is normal the patient is clear from neurological perspective. Sanchez Love M.D. Neuro-Hospitalist Time with Patient: Less than 30
[2021-09-29] MEDS ORDERED: LACTATED RINGERS 1,000 ML IV ONE (11:43)
--- NOTE | 2021-09-29 13:04 | P.PCN ---
Date of Procedure: 09/29/21 Description of Procedure: Procedure: 1. Diagnostic Lumbar puncture for CSF collection PREOPERATIVE DIAGNOSIS: Rule out multiple sclerosis, Lyme's disease POSTOPERATIVE DIAGNOSIS: Rule out multiple sclerosis, and Lyme's disease SURGEON: Karel Massey ANESTHESIA: Local with 1% lidocaine, and IV sedation : Versed 1 mg, and fentanyl 50 g EBL: None. Specimen removed: 3 mL of CSF in each collecting tube X4 PROCEDURE INDICATION: The patient had history of patient had a history of chronic fever for more than 6 months, is suspicious for multiple sclerosis, and also had a history of joint pain recent palpitations physician wants to rule out Lyme's disease . Consulted for lumbar puncture for CSF collection send it for analysis. PROCEDURE DESCRIPTION: The patient was seen and identified. Risks, benefits, complications, and alternatives were discussed with the patient. The patient agreed to proceed with the procedure and signed the consent, and vital signs were stable. Patient was taken to the procedure area, and time out was completed. The patient was placed in sitting position on procedure. . The lumbosacral area was prepped with ChloraPrep 2 and draped in the usual sterile fashion. Critical pause was taken. Vital signs were closely monitored during the procedure. Posterior superior iliac crest landmarks was identified . The midline lumbar space also identified. Approximately at the level of L4-L5 interspinous space, skin and deeper tissues were localized with 5 mL of 1% lidocaine. Using a 22 gauge 3.5 spinal needle entered into subarachnoid space, with 1 attempt. Clear CSF came out of the spinal needle. 3 mL of CSF fluid collected in each tube 4. Needle was withdrawn intact, skin was cleansed, and bandages were applied. COMPLICATIONS: None. DISPOSITION / PLANS: The patient was placed in a supine position and transferred to the room under stable conditions. Patient recommended to drink plenty of water, and IV fluids today to minimize post dural puncture headache..
[2021-09-29] MEDS: GABAPENTIN 100 MG CAP PO SCH ×2 (13:25→17:15)
[2021-09-29] MEDS: ATORVASTATIN 10 MG TAB PO SCH (13:25)
[2021-09-29 15:45] VITALS: BP 107/66; PULSE 60; RESP 18; TEMP 97.7
--- NOTE | 2021-09-29 16:25 | DS ---
DISCHARGE SUMMARY DATE OF SERVICE: 09/29/2021 FINAL DIAGNOSES: 1. Chest pain, myocardial function ruled out, possibly musculoskeletal. 2. Hyperlipidemia. 3. Ruling out Lyme disease, under workup. 4. Increased random glucose. 5. Hyponatremia. 6. History of cardiomyopathy with chronic systolic dysfunction, ejection fraction 40- 45$. 7. Hypertension. 8. History of tonsillectomy. 9. History of cholecystectomy. 10.Obesity with body mass index of 33.5. DISCHARGE DISPOSITION: Patient discharged in guarded condition.. HISTORY OF PRESENT ILLNESS: This 46-year-old gentleman with a past history of multiple medical problems being followed by Dr. Charles in the outpatient setting was admitted with multiple symptomatology. Cardiology saw the patient and recommended outpatient followup. Patient also had extensive workup initiated for Lyme disease. So far all the reports are negative. The Lyme titers and the ( ) are pending at this time. . Dr. Giraldo saw the patient. The patient also had hyperlipidemia. Dr. Love saw the patient, recommended lumbar puncture and further studies also. On exam, cardiovascular S1, S2. Abdomen soft. Nervous system: No focal deficits. DIET: Cardiac diet. ACTIVITY: Limited until followup. FOLLOWUP: Follow up with Dr. Charles in one week. Follow up with Dr. Mackey in one week. Follow up with Dr. Nur in one week. Follow up with Dr. Giraldo in one week. Follow up with Dr. Paulino Serrano in two weeks. MEDICATIONS: Lipitor 10 mg p.o. daily and aspirin 81 mg p.o. daily. Once again, the patient discharged in stable condition with guarded prognosis. MMODL / IJN: [id number] /
[2021-09-29 16:32] LABS: Appearance,CSF Clear
[2021-09-29 16:33] LABS: CSF Tube Number 4; Nucleated Cells, CSF 0 u/L (0-5); Red Blood Cell,CSF 17 u/L (0-10)
[2021-09-29 16:34] LABS: Red Blood Cell, CSF Crenated 0 %; Red Blood Cell, CSF Fresh 100 %
[2021-09-29 18:57] LABS: Glucose,CSF 60 mg/dL (40-70); Total Protein,CSF 72 mg/dL (12-60)
[2021-09-30 09:08] LABS: Methylmalonic Acid 0.1 umol/L (<0.40)
[2021-10-02 08:49] LABS: VDRL, Qualitative CSF Nonreactive (Nonreactive)
== END 2021-09-29 18:15 | disposition home or self-care (01) ==
LOC: EC 16:19 → 6NMEDSUR 18:30
PROVIDERS: ADMIT Hospitalist; ATTEND Hospitalist
DX: R07.2 Precordial pain (principal); E78.5 Hyperlipidemia, unspecified; E87.1 Hypo-osmolality and hyponatremia; I10 Essential (primary) hypertension; I08.1 Rheumatic disorders of both mitral and tricuspid valves; I42.8 Other cardiomyopathies; Z20.822 Contact with and (suspected) exposure to COVID-19; E66.9 Obesity, unspecified; Z68.33 Body mass index [BMI] 33.0-33.9, adult; R20.2 Paresthesia of skin; M50.222 Other cervical disc displacement at C5-C6 level; R25.1 Tremor, unspecified; R42 Dizziness and giddiness; G47.00 Insomnia, unspecified; R51.9 Headache, unspecified; M54.9 Dorsalgia, unspecified; M19.90 Unspecified osteoarthritis, unspecified site; R01.1 Cardiac murmur, unspecified; Z79.82 Long term (current) use of aspirin; Z86.16 Personal history of COVID-19; Z87.01 Personal history of pneumonia (recurrent); Z90.49 Acquired absence of other specified parts of digestive tract; Z82.3 Family history of stroke
CPT/HCPCS: 62270; 99285; 36415; 95816; 93005; 93306; 93351; 83921; 85379; 86592; 82747; 84157; 80061; 80053; 80048; 82945; 85652; 83916; 82607; 82746; 82164; 83735; 83873; 84484 ×2; 85025 ×2; 85610; 85730; 86140; 89050; 81003; 84311; 86618; 86038; 80306; 87070; 87205; 87801; 87635; 71046; 70450; 70553; 72156; G0378 ×4; J1250; Q9950; A9585; 99152